=== PATIENT | female | born 1985 | race Caucasian/White ===

== ENCOUNTER 2016-07-29 15:56 | Emergency (ER) | payer OTHER ==
[2016-07-29 16:30] VITALS: BP 106/60; PULSE 81; TEMP 98.6; BMI 28.8
--- NOTE | 2016-07-29 17:09 | PDOC ---
History of Present Illness - General Chief Complaint: Cold Symptoms Stated Complaint: FEVER, THROAT PAIN Time Seen by Provider: 07/29/16 16:27 History Source: Patient Exam Limitations: No Limitations - History of Present Illness Initial Comments: 07/29/16 17:04 30 yr female with c/o fever, body aches for 2 days. Pt's young children with flu symptoms the past 3 days. no vomiting or diarrhea. 07/29/16 17:08 Severity: reports: mild Past History - Past Medical History Allergies/Adverse Reactions: Allergies Allergy/AdvReac Type Severity Reaction Status Date / Time No Known Drug Allergies Allergy Verified 07/29/16 16:26 Home Medications: Ambulatory Orders Penicillin V Potassium [Pen Vee K -] 500 mg PO BID #20 tablet 07/29/16 Asthma: No Cancer: No Cardiac Disorders: No CVA: No COPD: No CHF: No DVT: No Dementia: No Diabetes: No Dialysis: No GI Disorders: No HTN: No Kidney Stones: No Liver Disease: No Psychiatric Problems: No Suicide Attempt (Hx): No Seizures: No Thyroid Disease: No - Surgical History Abdominal Surgery: Yes (tummy tuck ) - Reproductive History (#): 4 Para: 4 Cervical CA: No Dysfunctional Uterine Bleeding: No Ectopic : No Endometrial CA: No Polycystic Ovaries: No Therapeutic (s) & number: No Tubal Ligation: No Spontaneous : 0 - Immunization History Td Vaccination: Yes Immunization Up to Date: Yes - Psycho/Social/Smoking Cessation Hx Anxiety: No Suicidal Ideation: No Smoking Status: No Smoking History: Never smoked Years of Tobacco Use: 0 Have you smoked in the past 12 months: No Number of Cigarettes Smoked Daily: 0 Cigars Per Day: 0 Hx Alcohol Use: No Drug/Substance Use Hx: No Substance Use Type: None Hx Substance Use Treatment: No Respiratory Specific PMHX - Complaint Specific PMHX Angina: No Bronchitis: No Pneumonia: No Pulmonary Embolus: No TB (Tuberculosis): No Review of Systems - Review of Systems Able to Perform ROS?: Yes Is the patient limited Ethiopian proficient: No Constitutional: Yes: Symptoms Reported HEENTM: Yes: Symptoms Reported Respiratory: No: Symptoms reported Cardiac (ROS): No: Symptoms Reported ABD/GI: No: Symptoms Reported : No: Symptoms Reported Musculoskeletal: Yes: Symptoms Reported, See HPI Integumentary: No: Symptoms Reported *Physical Exam - Vital Signs Last Vital Signs Temp Pulse Resp BP Pulse Ox 98.6 F 81 14 106/60 99 07/29/16 16:26 07/29/16 16:26 07/29/16 16:26 07/29/16 16:26 07/29/16 16:26 - Physical Exam General Appearance: Yes: Nourished, Appropriately Dressed HEENT: positive: EOMI, TONE, TMs Normal, Pharynx Normal, Pharyngeal Erythema, Tonsillar Erythema Neck: positive: Supple. negative: Lymphadenopathy (R), Lymphadenopathy (L) Respiratory/Chest: positive: Lungs Clear, Normal Breath Sounds Cardiovascular: positive: Regular Rhythm, Regular Rate Gastrointestinal/Abdominal: positive: Normal Bowel Sounds, Soft Extremity: positive: Normal Capillary Refill, Normal Inspection, Normal Range of Motion Integumentary: positive: Normal Color, Dry, Warm Neurologic: positive: Fully Oriented, Alert, Normal Mood/Affect, Normal Response , Motor Strength 5/5 Medical Decision Making - Medical Decision Making 07/29/16 17:15 cc: sore throat, fever young children with same symptoms. strep sent from triage. *DC/Admit/Observation/Transfer Diagnosis at time of Disposition: Strep throat - Discharge Dispostion Disposition: HOME Condition at time of disposition: Good - Prescriptions Prescriptions: Penicillin V Potassium [Pen Vee K -] 500 mg PO BID #20 tablet - Referrals Referrals: Zuleyma Manning [Primary Care Provider] - - Patient Instructions Additional Instructions: you have strep throat take penicillin as directed for 10 days finish all the medicine gargle with warm salt water 4-5 times a day take motrin 600mg every 6hrs for fever or pain throw out your toothbrush at the end of treatment follow with your doctor next week
== END 2016-07-29 17:42 | disposition home or self-care (01) ==
LOC: JERFT 15:56
DX: J02.0 Streptococcal pharyngitis (principal)
CPT/HCPCS: 87070; 87077; 87430; 87804; 99281-25

== ENCOUNTER 2016-09-14 21:46 | Emergency (ER) | payer OTHER ==
[2016-09-14 22:16] VITALS: BP 110/57; PULSE 73; TEMP 98; BMI 28.3
[2016-09-15] MEDS ORDERED: ONDANSETRON *ODT* 4 MG TABLET SL ONE (00:18)
--- NOTE | 2016-09-15 00:18 | PDOC ---
History of Present Illness - History of Present Illness Initial Comments: 09/15/16 00:40 The patient is a 30 year old female, with no significant past medical history, who presents to the emergency department with nausea, vomiting, and diarrhea today. The patient mentions that her oldest son came home from daycare with vomiting and diarrhea today. The patient reports a couple episodes of vomiting and diarrhea while in the ED tonight. She denies chest pain, shortness of breath, headache and dizziness. She denies fever, chills, and constipation. She denies dysuria, frequency, urgency and hematuria. Allergies: NKDA Past surgical history: tubal ligation Social history: denies toxic habits <Mar Ness - Last Filed: 09/15/16 00:39> - General History Source: Patient <Stan Ortega - Last Filed: 09/15/16 06:34> - General Chief Complaint: Sore Throat Stated Complaint: SORE THROAT/DIARRHEA Time Seen by Provider: 09/15/16 00:18 Past History <Mar Ness - Last Filed: 09/15/16 00:39> - Past Medical History Asthma: No Cancer: No Cardiac Disorders: No CVA: No COPD: No CHF: No DVT: No Dementia: No Diabetes: No Dialysis: No GI Disorders: No HTN: No Kidney Stones: No Liver Disease: No Psychiatric Problems: No Suicide Attempt (Hx): No Seizures: No Thyroid Disease: No - Surgical History Abdominal Surgery: Yes (tummy tuck ) - Reproductive History (#): 4 Para: 4 Cervical CA: No Dysfunctional Uterine Bleeding: No Ectopic : No Endometrial CA: No Polycystic Ovaries: No Therapeutic (s) & number: No Tubal Ligation: No Spontaneous : 0 - Immunization History Td Vaccination: Yes Immunization Up to Date: Yes - Psycho/Social/Smoking Cessation Hx Anxiety: No Suicidal Ideation: No Smoking Status: No Smoking History: Never smoked Years of Tobacco Use: 0 Have you smoked in the past 12 months: No Number of Cigarettes Smoked Daily: 0 Cigars Per Day: 0 Hx Alcohol Use: No Drug/Substance Use Hx: No Substance Use Type: None Hx Substance Use Treatment: No <Stan Ortega - Last Filed: 09/15/16 06:34> - Past Medical History Allergies/Adverse Reactions: Allergies Allergy/AdvReac Type Severity Reaction Status Date / Time No Known Drug Allergies Allergy Verified 09/14/16 22:17 Home Medications: Ambulatory Orders Penicillin V Potassium [Pen Vee K -] 500 mg PO BID #20 tablet 07/29/16 Ondansetron [Zofran *Odt*] 4 mg SL TID #30 od.tablet 09/15/16 Review of Systems - Review of Systems Able to Perform ROS?: Yes Comments:: 09/15/16 00:39 CONSTITUTIONAL: Absent: fever, chills, diaphoresis, generalized weakness, malaise, loss of appetite HEENT: Absent: rhinorrhea, nasal congestion, throat pain, throat swelling, difficulty swallowing, mouth swelling, ear pain, eye pain, visual Changes CARDIOVASCULAR: Absent: chest pain, syncope, palpitations, irregular heart rate, lightheadedness , peripheral edema RESPIRATORY: Absent: cough, shortness of breath, dyspnea with exertion, orthopnea, wheezing, stridor, hemoptysis GASTROINTESTINAL: (+) nausea, vomiting, diarrhea, Absent: abdominal pain, abdominal distension, constipation, melena, hematochezia GENITOURINARY: Absent: dysuria, frequency, urgency, hesitancy, hematuria, flank pain, genital pain MUSCULOSKELETAL: Absent: myalgia, arthralgia, joint swelling SKIN: Absent: rash, itching, pallor HEMATOLOGIC/IMMUNOLOGIC: Absent: easy bleeding, easy bruising, lymphadenopathy, frequent infections ENDOCRINE: Absent: unexplained weight gain, unexplained weight loss, heat intolerance, cold intolerance NEUROLOGIC: Absent: headache, focal weakness or paresthesias, dizziness, unsteady gait, seizure, mental status changes, bladder or bowel incontinence PSYCHIATRIC: Absent: anxiety, depression, suicidal or homicidal ideation, hallucinations. <Mar Ness - Last Filed: 09/15/16 00:39> *Physical Exam - Vital Signs Last Vital Signs Temp Pulse Resp BP Pulse Ox 98.0 F 73 20 110/57 100 09/14/16 22:14 09/14/16 22:14 09/14/16 22:14 09/14/16 22:14 09/14/16 22:14 - Physical Exam Comments: 09/15/16 00:40 GENERAL: Well developed, well nourished. Awake and alert. No acute distress. HEENT: Normocephalic, atraumatic. PERRLA, EOMI. No conjunctival pallor. Sclera are non- icteric. Moist mucous membranes. Oropharynx is clear. NECK: Supple. Full ROM. No JVD. Carotid pulses 2+ and symmetric, without bruits. No thyromegaly. No lymphadenopathy. CARDIOVASCULAR: Regular rate and rhythm. No murmurs, rubs, or gallops. Distal pulses are 2+ and symmetric. PULMONARY: No evidence of respiratory distress. Lungs clear to auscultation bilaterally. No wheezing, rales or rhonchi. ABDOMINAL: Soft. Non-tender. Non-distended. No rebound or guarding. No organomegaly. Normoactive bowel sounds. MUSCULOSKELETAL Normal range of motion at all joints. No bony deformities or tenderness. No CVA tenderness. EXTREMITIES: No cyanosis. No clubbing. No edema. No calf tenderness. SKIN: Warm and dry. Normal capillary refill. No rashes. No jaundice. NEUROLOGICAL: Alert, awake, appropriate. Cranial nerves 2-12 intact. Normoreflexic in the upper and lower extremities. Normal speech. Toes are down-going bilaterally. Gait is normal without ataxia. PSYCHIATRIC: Cooperative. Good eye contact. Appropriate mood and affect. <Mar Ness - Last Filed: 09/15/16 00:39> - Vital Signs Last Vital Signs Temp Pulse Resp BP Pulse Ox 98.0 F 73 20 110/57 100 09/14/16 22:14 09/14/16 22:14 09/14/16 22:14 09/14/16 22:14 09/14/16 22:14 <Stan Ortega - Last Filed: 09/15/16 06:34> Medical Decision Making - Medical Decision Making 09/15/16 06:33 Dr. Ortega: The scribe's documentation has been prepared under my direction and personally reviewed by me in its entirery. I confirm that the note above accurately reflects all work, treatment, procedures, and medical decision making performed by me. <Stan Ortega - Last Filed: 09/15/16 06:34> *DC/Admit/Observation/Transfer - Attestations Scribe Attestion: 09/15/16 00:40 Documentation prepared by Mar Ness, acting as certified medical aide for Stan Ortega MD <Mar Ness - Last Filed: 09/15/16 00:39> - Discharge Dispostion Admit: No <Stan Ortega - Last Filed: 09/15/16 06:34> Diagnosis at time of Disposition: Viral gastroenteritis - Discharge Dispostion Disposition: HOME Condition at time of disposition: Stable - Prescriptions Prescriptions: Ondansetron [Zofran *Odt*] 4 mg SL TID #30 od.tablet - Referrals Referrals: Zuleyma Manning [Primary Care Provider] - - Patient Instructions Printed Discharge Instructions: DI for Viral Gastroenteritis -- Adult Print Language: ZAMBIAN - Post Discharge Activity Work/School Note: Back to Work
== END 2016-09-15 02:20 | disposition home or self-care (01) ==
LOC: JER 21:46
DX: A08.4 Viral intestinal infection, unspecified (principal); B97.89 Other viral agents as the cause of diseases classified elsewhere
CPT/HCPCS: 99281-25

== ENCOUNTER 2017-06-15 16:38 | Emergency (ER) | payer OTHER ==
[2017-06-15 16:45] VITALS: BP 102/58; PULSE 82; TEMP 98.6; BMI 28.0
--- NOTE | 2017-06-15 16:49 | PDOC ---
History of Present Illness - General History Source: Patient, Old Records Exam Limitations: No Limitations - History of Present Illness Initial Comments: 06/15/17 17:40 The patient is a 31 year old female (), with no significant past medical history, who presents to the emergency department with intermittent left lower quadrant abdominal pain for the past two months. The patient describes the lower abdominal pain as a cramping pain and states that it has worsened within the past week. The patient additionally reports urinary frequency in the past week. She also reports lower back pain which radiates down the left leg. The patient denies fever, chills, nausea, vomiting, diarrhea, dysuria or hematuria. The patient states that she is not currently sexually active. Allergies: None reported. Past Surgical History: ; Tubal Ligation. Social History: Non-smoker. Denies alcohol or drug use. <Marina Morales - Last Filed: 06/15/17 18:48> <Amish Multani - Last Filed: 06/15/17 19:07> - General Chief Complaint: Urinary Problem Stated Complaint: lower abdominal pain with frequent urination Past History <Marina Morales - Last Filed: 06/15/17 18:48> - Past Medical History Asthma: No Cancer: No Cardiac Disorders: No CVA: No COPD: No CHF: No DVT: No Dementia: No Diabetes: No Dialysis: No GI Disorders: No HTN: No Kidney Stones: No Liver Disease: No Psychiatric Problems: No Seizures: No Thyroid Disease: No Other medical history: pt denies - Surgical History Abdominal Surgery: Yes (tummy tuck ) - Reproductive History (#): 4 Para: 4 Cervical CA: No Dysfunctional Uterine Bleeding: No Ectopic : No Endometrial CA: No Polycystic Ovaries: No Therapeutic (s) & number: No Tubal Ligation: No Spontaneous : 0 - Immunization History Td Vaccination: Yes Immunization Up to Date: Yes - Suicide/Smoking/Psychosocial Hx Smoking Status: No Smoking History: Never smoked Years of Tobacco Use: 0 Have you smoked in the past 12 months: No Number of Cigarettes Smoked Daily: 0 Cigars Per Day: 0 Hx Alcohol Use: No Drug/Substance Use Hx: No Substance Use Type: None Hx Substance Use Treatment: No <Amish Multani - Last Filed: 06/15/17 19:07> - Past Medical History Allergies/Adverse Reactions: Allergies Allergy/AdvReac Type Severity Reaction Status Date / Time No Known Drug Allergies Allergy Verified 06/15/17 16:39 Home Medications: Ambulatory Orders NK [No Known Home Medication] 06/15/17 Review of Systems - Review of Systems Able to Perform ROS?: Yes Comments:: 06/15/17 16:50 A complete review of 10 out of 10 review of systems is taken and is negative apart from what is previously mentioned below and in the HPI. <Marina Morales - Last Filed: 06/15/17 18:48> *Physical Exam - Vital Signs Last Vital Signs Temp Pulse Resp BP Pulse Ox 98.6 F 82 18 102/58 100 06/15/17 16:38 06/15/17 16:38 06/15/17 16:38 06/15/17 16:38 06/15/17 16:38 - Physical Exam Comments: 06/15/17 17:37 Vitals: Triage vital signs reviewed. General Appearance: No acute distress, well nourished, well developed. Head: Atraumatic, normocephalic. Eyes: Pupils equal round reactive, extraocular movements intact. Neck: Supple. No nuchal rigidity. Chest Wall: Nontender. Cardiac: Regular rate and rhythm. No murmurs, no rubs, no gallops. Lungs: Clear to auscultation bilaterally, good air movement bilaterally. Abdomen: Mild left lower quadrant tenderness. Soft, nondistended, normal bowel sounds. MSK: Mild midline low back discomfort, maximal left paraspinal L3 - L5 distribution. Extremities: Full range of motion to all extremities. No cyanosis, clubbing, or edema. Skin: Warm and dry, no rashes or lesions, no petechiae. Neuro: AOX3. Cranial Nerves 2-12 grossly intact. Strength intact to all extremities. Sensation intact to all extremities. Normal gait. Psych: Normal mood, normal affect. Pelvic Exam: Left adnexal tenderness. No cervical motion tenderness. No noticeable discharge. <Marina Morales - Last Filed: 06/15/17 18:48> - Vital Signs Last Vital Signs Temp Pulse Resp BP Pulse Ox 98.6 F 82 18 102/58 100 06/15/17 16:38 06/15/17 16:38 06/15/17 16:38 06/15/17 16:38 06/15/17 16:38 <Amish Multani - Last Filed: 06/15/17 19:07> ED Treatment Course - LABORATORY CBC & Chemistry Diagram: 06/15/17 18:10 06/15/17 18:10 <Marina Morales - Last Filed: 06/15/17 18:48> - LABORATORY CBC & Chemistry Diagram: 06/15/17 18:10 06/15/17 18:10 <Amish Multani - Last Filed: 06/15/17 19:07> Medical Decision Making - Medical Decision Making 06/15/17 18:48 EXAM: US/TRANSVAGINAL US Reviewed By: Dr. Suresh South IMPRESSION: A 3 cm hemorrhagic left ovarian cyst is seen. <Marina Morales - Last Filed: 06/15/17 18:48> - Medical Decision Making 06/15/17 18:39 History and examination most consistent with ovarian cyst, hemmorhagic Patient feels better after Toradol. She was instructed to follow up with [facility] this week Findings, the need for follow-up and strict return instructions discussed with patient. <Amish Multani - Last Filed: 06/15/17 19:07> *DC/Admit/Observation/Transfer - Attestations Scribe Attestion: 06/15/17 17:10 Documentation prepared by Marina Morales, acting as medical assembler for Amish Multani MD. <Marina Morales - Last Filed: 06/15/17 18:48> <Amish Multani - Last Filed: 06/15/17 19:07> Diagnosis at time of Disposition: Ruptured ovarian cyst - Discharge Dispostion Condition at time of disposition: Stable - Referrals Referrals: Ashley Heard MD [Staff Physician] - - Patient Instructions Printed Discharge Instructions: DI for Ovarian Cyst Additional Instructions: Follow up with Dr. Heard [facility]NA[facility] within 1 week. Take [id number] Aleve 2 tabs twice a day for the next 3 days. Drink plenty of fluids. Return to the emergency department for any severe worsening symptoms or for any concerns.
[2017-06-15 17:18] LABS: PH,URINE 7.5 (4.5-8); URINE APPEARANCE Clear; URINE BILIRUBIN Negative (NEGATIVE); URINE BLOOD Negative (NEGATIVE); URINE GLUCOSE (UA) Negative (NEGATIVE); URINE KETONE Negative (NEGATIVE); URINE NITRITE Negative (NEGATIVE); URINE PROTEIN Negative (NEGATIVE); URINE UROBILINOGEN 0.2 (0.2-1.0)
[2017-06-15 17:22] LABS: URINE COLOR YELLOW
[2017-06-15] MEDS ORDERED: KETOROLAC TROMETHAMINE 30 MG/1 ML VIAL IM ONE (18:21)
[2017-06-15 18:27] LABS: BASO % 0.4 % (0-2.0); EOS % 1.9 % (0-4.5); HEMATOCRIT 36.8 % (32.4-45.2); HEMOGLOBIN 11.9 GM/dl (10.7-15.3); MCH 27.1 pg (25.7-33.7); MCHC 32.3 g/dl (32.0-36.0); MEAN CELL VOLUME 84.1 fl (80-96); MEAN PLT VOLUME 8.3 fl (7.5-11.1); MONO % 6.9 % (3.8-10.2); NEUT % 67.8 % (42.8-82.8); PLATELET COUNT 292 K/MM3 (134-434); RBC 4.37 M/mm3 (3.60-5.2); RDW 14.6 % (11.6-15.6); WHITE BLOOD COUNT 9.7 K/mm3 (4.0-10.8)
[2017-06-15] MEDS ORDERED: KETOROLAC TROMETHAMINE 30 MG/1 ML VIAL ONE (18:36)
[2017-06-15 18:42] LABS: ALBUMIN 3.6 g/dl (3.5-5.0); ALK PHOS 65 U/L (32-92); ANION GAP 5 (8-16); BILIRUBIN,TOTAL 0.2 mg/dl (0.2-1.0); BLOOD UREA NITROGEN 15 mg/dl (7-18); CALCIUM 8.7 mg/dl (8.4-10.2); CHLORIDE 104 mmol/L (98-107); CO2 28 mmol/L (22-28); CREATININE 0.9 mg/dl (0.6-1.3); GLUCOSE,RANDOM 93 mg/dl (74-106); POTASSIUM 3.7 mmol/L (3.5-5.1); SGOT/AST 15 U/L (10-42); SGPT/ALT 13 U/L (10-40); SODIUM 137 mmol/L (136-145)
== END 2017-06-15 19:21 | disposition home or self-care (01) ==
LOC: FER 16:38
PROC: 3E0233Z Introduction of Anti-inflammatory into Muscle, Percutaneous Approach (ICD-10-PCS; principal; 2017-06-15)
DX: N83.299 Other ovarian cyst, unspecified side (principal)
CPT/HCPCS: 36415; 76830-TC; 80053; 81003; 84703; 85025; 87086; 96372; 99282-25

== ENCOUNTER 2017-08-05 18:59 | Emergency (ER) | payer OTHER ==
[2017-08-05 19:03] VITALS: BP 111/69; PULSE 74; TEMP 98.8; BMI 28.0
[2017-08-05] MEDS ORDERED: predniSONE 20 MG TABLET (UD) PO ONE (20:31)
[2017-08-05] MEDS ORDERED: RANITIDINE HCL 150 MG TABLET (FP) PO ONE (20:31)
[2017-08-05] MEDS ORDERED: diphenhydrAMINE HCL 25 MG CAPSULE (FP) PO ONE (20:31)
--- NOTE | 2017-08-05 20:31 | PDOC ---
History of Present Illness - General History Source: Patient Exam Limitations: No Limitations - History of Present Illness Initial Comments: 08/05/17 21:14 The patient is a 31 year old female with no significant past medical history who presents to the ED with complaints of rash. The patient states she was in the ED earlier today with her three children when one of her boys put their jacket in the red [place] garbage bin. She states after retrieving it from the garbage, she did not wash her hands and brushed her hair away from her face , touching her left ear. After this happened, her ear became very itchy. Since then the patient has developed a rash all over her body, predominantly on her trunk, groin, legs. She reports taking Claritin without any relief. The patient cannot relate her symptoms to any other causes, denies any new exposures or medications. The patient denies any difficulty swallowing or throat swelling She denies having any recent illness, fevers, or chills. Denies N/V. Denies weakness, dizziness. <Carmela Geronimo - Last Filed: 08/05/17 21:14> <Mariaelena Villalta - Last Filed: 08/06/17 01:34> - General Chief Complaint: Vaginal Sxs Stated Complaint: ITCHING/VAGINAL ITCHING Time Seen by Provider: 08/05/17 20:14 Past History <Carmela Geronimo - Last Filed: 08/05/17 21:14> - Past Medical History Asthma: No Cancer: No Cardiac Disorders: No CVA: No COPD: No CHF: No DVT: No Dementia: No Diabetes: No Dialysis: No GI Disorders: No HTN: No Kidney Stones: No Liver Disease: No Psychiatric Problems: No Seizures: No Thyroid Disease: No - Surgical History Abdominal Surgery: Yes (tumjaneth tumicki ) - Reproductive History (#): 4 Para: 4 Cervical CA: No Dysfunctional Uterine Bleeding: No Ectopic : No Endometrial CA: No Polycystic Ovaries: No Therapeutic (s) & number: No Tubal Ligation: No Spontaneous : 0 - Immunization History Td Vaccination: Yes Immunization Up to Date: Yes - Suicide/Smoking/Psychosocial Hx Smoking Status: No Smoking History: Never smoked Years of Tobacco Use: 0 Have you smoked in the past 12 months: No Number of Cigarettes Smoked Daily: 0 Cigars Per Day: 0 Hx Alcohol Use: No Drug/Substance Use Hx: No Substance Use Type: None Hx Substance Use Treatment: No <Mariaelena Villalta - Last Filed: 08/06/17 01:34> - Past Medical History Allergies/Adverse Reactions: Allergies Allergy/AdvReac Type Severity Reaction Status Date / Time No Known Drug Allergies Allergy Verified 06/15/17 16:39 Home Medications: Ambulatory Orders Prednisone [Prednisone 50 MG TABLETS] 50 mg PO DAILY #4 tablet 08/05/17 Review of Systems - Review of Systems Able to Perform ROS?: Yes Comments:: 08/05/17 21:14 "GENERAL/CONSTITUTIONAL: No fever or chills. No weakness. HEAD, EYES, EARS, NOSE AND THROAT: No change in vision. No ear pain or discharge. No sore throat. GASTROINTESTINAL: No nausea, vomiting, diarrhea or constipation. GENITOURINARY: No dysuria, frequency, or change in urination. CARDIOVASCULAR: No chest pain or shortness of breath. RESPIRATORY: No cough, wheezing, or hemoptysis. MUSCULOSKELETAL: No joint or muscle swelling or pain. No neck or back pain. SKIN: Present: rash NEUROLOGIC: No headache, vertigo, loss of consciousness, or change in strength/ sensation. ENDOCRINE: No increased thirst. No abnormal weight change. HEMATOLOGIC/LYMPHATIC: No anemia, easy bleeding, or history of blood clots. ALLERGIC/IMMUNOLOGIC: No hives or skin allergy. " All Other Systems: Reviewed and Negative <Carmela Geronimo - Last Filed: 08/05/17 21:14> *Physical Exam - Vital Signs Last Vital Signs Temp Pulse Resp BP Pulse Ox 98.8 F 74 16 111/69 100 08/05/17 19:01 08/05/17 19:01 08/05/17 19:01 08/05/17 19:01 08/05/17 19:01 - Physical Exam Comments: 08/05/17 21:14 GENERAL: Awake, alert, and fully oriented, in no acute distress HEAD: No signs of trauma EYES: PERRLA, EOMI, sclera anicteric, conjunctiva clear ENT: Auricles normal inspection, hearing grossly normal, nares patent, oropharynx clear without exudates. Moist mucosa NECK: Normal ROM, supple, no lymphadenopathy, JVD, or masses LUNGS: Breath sounds equal, clear to auscultation bilaterally. No wheezes, and no crackles HEART: Regular rate and rhythm, normal S1 and S2, no murmurs, rubs or gallops ABDOMEN: Soft, nontender, normoactive bowel sounds. No guarding, no rebound. No masses EXTREMITIES: Normal range of motion, no edema. No clubbing or cyanosis. No cords, erythema, or tenderness BACK: No midline spinal tenderness in cervical/thoracic/lumbar region NEUROLOGICAL: Normal speech, cranial nerves intact, negative pronator drift, 5/ 5 strength in all 4 extremities, normal sensation to light touch in all 4 extremities, normal cerebellar exam, normal gait, normal reflexes and tone SKIN: Diffuse erythematous papular rash to L neck, trunk, groin, suprapubic area and proximal lower extremities sparing palms and soles. In some areas, rash hives are present. No mucus involvement. <Carmela Geronimo - Last Filed: 08/05/17 21:14> - Vital Signs Last Vital Signs Temp Pulse Resp BP Pulse Ox 98.8 F 74 16 111/69 100 08/05/17 19:01 08/05/17 19:01 08/05/17 19:01 08/05/17 19:01 08/05/17 19:01 <Mariaelena Villalta - Last Filed: 08/06/17 01:34> ED Treatment Course - Medications Given in the ED: ED Medications Discontinued Medications Generic Name Dose Route Start Last Admin Trade Name Freq PRN Reason Stop Dose Admin Diphenhydramine HCl 50 mg 08/05/17 20:31 08/05/17 20:44 Benadryl - PO 08/05/17 20:32 50 mg ONCE ONE Administration Prednisone 60 mg 08/05/17 20:31 08/05/17 20:44 Deltasone - PO 08/05/17 20:32 60 mg ONCE ONE Administration Ranitidine HCl 150 mg 08/05/17 20:31 08/05/17 20:44 Zantac - PO 08/05/17 20:32 150 mg ONCE ONE Administration <Carmela Geronimo - Last Filed: 08/05/17 21:14> Medical Decision Making - Medical Decision Making 08/05/17 21:40 31-year-old female presents with rash. Vitals unremarkable. Exam with diffuse hives. No evidence of other symptoms, likely simple ALLERGIC reaction to unknown trigger. We'll treat with steroids, ranitidine, and Benadryl and reassess. 08/05/17 22:25 Patient reported improvement in rash and itching, likely simple allergic reaction. Patient left prior to receiving discharge paperwork. We called patient to let her know about prescription for prednisone, she stated she will pick it up. I discussed the physical exam findings, ancillary test results and final diagnoses with the patient. I answered all of the patient's questions. The patient was satisfied with the care received and felt comfortable with the discharge plan and treatment plan. The patient will call their primary care physician within 24 hours to arrange follow-up and will return to the Emergency Department with any new, persistent or worsening symptoms. <Mariaelena Villalta - Last Filed: 08/06/17 01:34> *DC/Admit/Observation/Transfer - Attestations Scribe Attestion: 08/05/17 21:15 Documentation prepared by Carmela Geronimo, acting as biomedical photographer for Mariaelena Villalta MD. <Carmela Geronimo - Last Filed: 08/05/17 21:14> - Discharge Dispostion Admit: No - Attestations Physician Attestion: 08/05/17 22:52 I, Dr. Mariaelena Villalta MD, attest that this document has been prepared under my direction and personally reviewed by me in its entirety. I further attest, that it accurately reflects all work, treatment, procedures and medical decision -making performed by me. <Mariaelena Villalta - Last Filed: 08/06/17 01:34> Diagnosis at time of Disposition: Allergic reaction - Discharge Dispostion Disposition: HOME Condition at time of disposition: Stable - Prescriptions Prescriptions: Prednisone [Prednisone 50 MG TABLETS] 50 mg PO DAILY #4 tablet - Patient Instructions Printed Discharge Instructions: DI for General Allergic Reactions Additional Instructions: Take prednisone daily as prescribed. Take Benadryl as needed for any rash, itching, or swelling. Follow-up with you primary doctor within 1-2 days. Return to the emergency department if you have any new, worsening or concerning symptoms.
[2017-08-05] MEDS ORDERED: diphenhydrAMINE HCL 50 MG CAPSULE ONE (20:42)
[2017-08-05] MEDS ORDERED: RANITIDINE HCL 150 MG TABLET (FP) ONE (20:42)
[2017-08-05] MEDS ORDERED: predniSONE 20 MG TABLET (UD) ONE (20:42)
== END 2017-08-05 22:00 | disposition home or self-care (01) ==
LOC: FER 18:59
DX: T78.49XA Other allergy, initial encounter (principal); X58.XXXA Exposure to other specified factors, initial encounter; Y93.89 Activity, other specified; Y92.238 Other place in hospital as the place of occurrence of the external cause
CPT/HCPCS: 99281-25

== ENCOUNTER 2017-08-07 17:51 | Observation (INO) | payer OTHER ==
[2017-08-07 18:01] VITALS: BMI 30.1
--- NOTE | 2017-08-07 19:00 | PDOC ---
History of Present Illness - History of Present Illness Initial Comments: 08/07/17 19:07 Patient is a 31 F, who presents with her son (who is also a patient today) for urticaria and joint pain. Patient has returned to the ER for a rash around her periorbital, perioral, arms, forearms, and legs. Patient also complaints on joint pain upon movement. Patient was previously seen on 08/05 and 08/06 for a rash that seemed to develop after exposure to the red biohazard trash can. She was prescribed Hydroxyzine and Prednisone. She states she took a 50mg tablet of Prednisone this morning. Allergies: None reported. Past Surgical History: ; Tubal Ligation. Social History: Non-smoker. Denies alcohol or drug use. PCP: Dr. Manning <Thalia Herring - Last Filed: 08/07/17 19:07> <Arben Saldana - Last Filed: 08/07/17 21:22> - General Chief Complaint: Rash Stated Complaint: RASH AND PAIN TO HANDS, FEET AND PERIORITAL , ORAL Time Seen by Provider: 08/07/17 18:35 Past History <Thalia Herring - Last Filed: 08/07/17 19:07> - Past Medical History Asthma: No Cancer: No Cardiac Disorders: No CVA: No COPD: No CHF: No DVT: No Dementia: No Diabetes: No Dialysis: No GI Disorders: No HTN: No Kidney Stones: No Liver Disease: No Psychiatric Problems: No Seizures: No Thyroid Disease: No - Surgical History Abdominal Surgery: Yes (tummy tuck ) - Reproductive History (#): 4 Para: 4 Cervical CA: No Dysfunctional Uterine Bleeding: No Ectopic : No Endometrial CA: No Polycystic Ovaries: No Therapeutic (s) & number: No Tubal Ligation: No Spontaneous : 0 - Immunization History Td Vaccination: Yes Immunization Up to Date: Yes - Suicide/Smoking/Psychosocial Hx Smoking Status: No Smoking History: Never smoked Years of Tobacco Use: 0 Have you smoked in the past 12 months: No Number of Cigarettes Smoked Daily: 0 Cigars Per Day: 0 Hx Alcohol Use: No Drug/Substance Use Hx: No Substance Use Type: None Hx Substance Use Treatment: No <Arben Saldana - Last Filed: 08/07/17 21:22> - Past Medical History Allergies/Adverse Reactions: Allergies Allergy/AdvReac Type Severity Reaction Status Date / Time No Known Drug Allergies Allergy Verified 08/07/17 17:53 Home Medications: Ambulatory Orders Prednisone [Prednisone 50 MG TABLETS] 50 mg PO DAILY #4 tablet 08/05/17 Permethrin 5% Topical Cream [Elimite -] 1 applic TP ONCE 1 Days #4 tube Prednisone [Prednisone 50 MG TABLETS] 50 mg PO DAILY 4 Days #4 tablet 08/06/17 hydrOXYzine HCL [Atarax -] 25 mg PO QID #28 tablet 08/06/17 Review of Systems - Review of Systems Comments:: 08/07/17 19:07 CONSTITUTIONAL: Absent: Fever, Chills, Diaphoresis, Generalized Weakness, Malaise, Loss of Appetite HEENT: Absent: Rhinorrhea, Nasal Congestion, Throat Pain, Throat Swelling, Difficulty Swallowing, Mouth Swelling, Ear Pain, Eye Pain, Visual Changes CARDIOVASCULAR: Absent: Chest Pain, Syncope, Palpitations, Irregular Heart Rate, Lightheadedness , Peripheral Edema RESPIRATORY: Absent: Cough, Shortness of Breath, SOB with Exertion, Orthopnea, Wheezing, Stridor, Hemoptysis GASTROINTESTINAL: Absent: Abdominal pain, Abdominal Distension, Nausea, Vomiting, Diarrhea, Constipation, Melena, Hematochezia GENITOURINARY: Absent: Dysuria, Frequency, Urgency, Hesitancy, Flank Pain, Genital Pain MUSCULOSKELETAL: Present: Arthralgia diffusely Absent: Myalgia, Joint Swelling, Back pain, SKIN: Present: errythemtous rash diffusely, itching Absent: pallor HEMATOLOGIC/IMMUNOLOGIC: Absent: Easy Bleeding, Easy Bruising, Lymphadenopathy, Frequent infections ENDOCRINE: Absent: Unexplained Weight Gain, Unexplained Weight Loss, Heat Intolerance, Cold Intolerance NEUROLOGIC: Absent: Headache, Focal Weakness, Paresthesias, Vertigo, Lightheadedness, Unsteady Gait, Seizure, Mental Status Changes, Incontinence PSYCHIATRIC: Absent: Anxiety, Depression <Thalia Herring - Last Filed: 08/07/17 19:07> *Physical Exam - Vital Signs Last Vital Signs Temp Pulse Resp BP Pulse Ox 98.1 F 81 18 108/72 99 08/07/17 17:58 08/07/17 17:58 08/07/17 17:58 08/07/17 17:58 08/07/17 17:58 - Physical Exam Comments: 08/07/17 19:09 GENERAL: The patient is awake, alert, and fully oriented, in no acute distress. HEAD: Normal with no signs of trauma. EYES: Pupils equal, round and reactive to light, extraocular movements intact, sclera anicteric, conjunctiva clear. ENT: Ears normal, nares patent, oropharynx clear without exudates. Moist mucous membranes. NECK: Normal range of motion, supple without lymphadenopathy, JVD, or masses. LUNGS: Breath sounds equal, clear to auscultation bilaterally. No wheezes, and no crackles. HEART: Regular rate and rhythm, normal S1 and S2 without murmur, rub or gallop. ABDOMEN: Soft, nontender, normoactive bowel sounds. No guarding, no rebound. No masses. EXTREMITIES: Tenderness to palpation, secondary to pain in joints diffusely. Normal range of motion, no edema. No clubbing or cyanosis. No cords. NEUROLOGICAL: Cranial nerves II through XII grossly intact. Normal speech, normal gait. PSYCH: Normal mood, normal affect. SKIN: Periorbital rash with welts. Rash to b/l arms, forearms, hands, legs. Warm , Dry, normal turgor. <Thalia Herring - Last Filed: 08/07/17 19:07> - Vital Signs Last Vital Signs Temp Pulse Resp BP Pulse Ox 98.1 F 81 18 108/72 99 08/07/17 17:58 08/07/17 17:58 08/07/17 17:58 08/07/17 17:58 08/07/17 17:58 <Arben Saldana - Last Filed: 08/07/17 21:22> ED Treatment Course - LABORATORY CBC & Chemistry Diagram: 08/07/17 19:35 08/07/17 19:35 <Arben Saldana - Last Filed: 08/07/17 21:22> Medical Decision Making - Medical Decision Making 08/07/17 20:59 31-year-old female presents with progressive polyarthralgias and skin rash getting worse over several days. The pain is becoming severe and she is having difficulty moving her joints. The pain includes the shoulders, elbows, wrists, hands, hips, knees, and ankles. She denies fever. She was seen in the ER and given prednisone, 50 mg daily, but her symptoms are progressing with worsening pain and rash. She was also given hydroxyzine. On examination, the patient has a perioral rash as well as rash on her arms in the antecubital regions and less so on her legs. Laboratory studies reviewed: White blood cell count is 19,000 with left shift, 85% neutrophils. Anion gap is normal. LFTs are normal. The polyarthritis syndrome with severe leukocytosis is of uncertain etiology. This degree of leukocytosis would not be accounted for by oral prednisone. Differential diagnosis of the polyarthritis is broad but includes infection and bacterial infection is a possibility given the left shift and marked leukocytosis. Patient will be admitted to observation for repeat labs and follow-up of the evolution of her symptoms. Laboratory Results - last 24 hr 08/07/17 08/07/17 19:35 19:35 WBC 18.9 H D RBC 4.23 Hgb 11.8 Hct 34.6 MCV 82.0 MCH 28.0 MCHC 34.1 RDW 13.9 Plt Count 309 MPV 8.4 Neutrophils % 85.4 H Lymphocytes % 9.7 Monocytes % 4.7 Eosinophils % 0.0 Basophils % 0.2 ESR 9 Sodium 135 L Potassium 3.5 Chloride 106 Carbon Dioxide 22 D Anion Gap 7 L BUN 14 Creatinine < 0.8 Creat Clearance w eGFR > 60 Random Glucose 179 H D Calcium 8.6 Total Bilirubin < 0.5 D AST 18 ALT 13 Alkaline Phosphatase 62 Total Protein 6.7 Albumin 3.5 <Arben Saldana - Last Filed: 08/07/17 21:22> *DC/Admit/Observation/Transfer - Attestations Scribe Attestion: 08/07/17 19:12 Documentation prepared by Thalia Herring, acting as medical health researcher for Arben Saldana MD. <Thalia Herring - Last Filed: 08/07/17 19:07> - Discharge Dispostion Admit: Yes Decision to Admit order Date/Time: 08/07/17 21:[address] [facility] <Arben Saldana - Last Filed: 08/07/17 21:22> Diagnosis at time of Disposition: Polyarticular arthritis Leukocytosis Qualifiers: Leukocytosis type: unspecified Qualified Code(s): D72.829 - Elevated white blood cell count, unspecified - Discharge Dispostion Condition at time of disposition: Stable
[2017-08-07] MEDS ORDERED: NAPROXEN 375 MG TABLET (FP) PO ONE (19:06)
[2017-08-07] MEDS ORDERED: NAPROXEN 375 MG TABLET (FP) ONE (19:23)
[2017-08-07 20:03] LABS: BASO % 0.2 % (0-2.0); HEMATOCRIT 34.6 % (32.4-45.2); HEMOGLOBIN 11.8 GM/dl (10.7-15.3); LYMPH % 9.7 % (8-40); MCHC 34.1 g/dl (32.0-36.0); MEAN PLT VOLUME 8.4 fl (7.5-11.1); MONO % 4.7 % (3.8-10.2); NEUT % 85.4 % (42.8-82.8); PLATELET COUNT 309 K/MM3 (134-434); RBC 4.23 M/mm3 (3.60-5.2); RDW 13.9 % (11.6-15.6); WHITE BLOOD COUNT 18.9 K/mm3 (4.0-10.8)
[2017-08-07 20:12] LABS: ALBUMIN 3.5 g/dl (3.5-5.0); ALK PHOS 62 U/L (32-92); ANION GAP 7 (8-16); BLOOD UREA NITROGEN 14 mg/dl (7-18); CALCIUM 8.6 mg/dl (8.4-10.2); CHLORIDE 106 mmol/L (98-107); CO2 22 mmol/L (22-28); GLUCOSE,RANDOM 179 mg/dl (74-106); POTASSIUM 3.5 mmol/L (3.5-5.1); SGOT/AST 18 U/L (10-42); SGPT/ALT 13 U/L (10-40); SODIUM 135 mmol/L (136-145); TOT PROT 6.7 g/dl (6.4-8.3)
[2017-08-07 20:30] LABS: BILIRUBIN,TOTAL < 0.5 mg/dl (0.2-1.0); CREATININE < 0.8 mg/dl (0.6-1.3)
[2017-08-07 20:39] LABS: ERYTHROCYTE SEDIMENTATION RATE 9 mm/hr (0-20)
[2017-08-07] MEDS ORDERED: ACETAMINOPHEN 325 MG TABLET (FP) PO PRN (22:13)
[2017-08-07] MEDS ORDERED: ONDANSETRON 8 MG TABLET (FP) PO PRN (22:18)
[2017-08-07] MEDS ORDERED: HEPARIN NA (PORCINE) 5,000 UNITS/ML 1ML VIAL ONE (22:21)
--- NOTE | 2017-08-07 22:23 | HP ---
Admitting History and Physical - Admission Chief Complaint: rash, joint pain History of Present Illness: 31 yo Chadian speaking f w no significant pmh who presents to ER for evaluation of recent joint pains, rash, fatigue. she notes onset of joint pain 2 days ago. she states she has pain in multiple joints including her ankles, knees, wrist, elbows, and shoulders. Prior to that she had a rash to her joints involving both upper and lower extremities with associated itchiness. She also notes swelling to parish hands x 1 day. SHe reports fatigue x 3 days. She reports being seen at [facility] and getting a prescription for hydroxyzine, prednisone and pertherin cream. She reports taking medications with no relief. She notes chest discomfort which is "pressure " that began in the ER. She states the pain is similar to the pain in her joints. She states the pain is intermittent and 10/ 10. She notes sob with talking. She reports facial pain. She denies fevers, chills, sick contacts, body aches, cough, wheezing, dysuria, bug bites, change of detergents/perfumes. She reports her son is sick with the FLU. Rest of ros neg except for HPI Past Surgical History: ; Tubal Ligation. Social History: Non-smoker. Denies alcohol or drug use. Famhx: NC (denies famhx of rheumatological diseases) PCP: Dr. Nigel Tinajero General- alert in nad Hent- at/nc, [place], neck supple, trachea midline, no pharyngeal erythema, no lymphadenopathy Resp- lungs ctab, no cyanosis Cards- no JVD, s1s2 heard, no rubs, RRR, reproducible CP on exam Gi- non-tender, no guarding, no rebound, no rigidity Neuro- alert, cn 2-12 grossly intact, muscle strength 5/5 bue/ble Musk- TTP, parish elbows, knees, wrists, and fingers. Swelling to parish hands and finger Skin- urticarial rash to antecubial area, knees, and ankles. + Perioral rash. Psych- cooperative, no agitation Prob list joint pain rash Pruritus leukocytosis Mild hyponatremia CP a/p- 31 yo Ch[place] speaking f w no significant pmh who presents to ER for evaluation of recent joint pains, rash, fatigue and placed in obs for further evaluation. 1. Polyarticular Joint pain/rash/fatigue: Broad DDx; infectious vs Rheum vs vasculitis. Will check ESR, CRP, TSH, NASREEN, ANCA, Lyme titer, RPR, HIV. Rheum consult 2. Leukocytosis poss stress vs steroid effect: no fevers, FU Blood cultures, Monitor CBC 3. Mild Hyponatremia: Monitor BMP 4. Pruritus: Prn benadryl 5. Atypical CP, ? costochrondritis: Cxr pending, ekg nl, reproducible on exam FEN IVF, reg diet DVT prophy SCD, OOB dispo- obs for w/u of joint pain, rash, fatigue History Source: Patient Limitations to Obtaining History: Language Barrier - Past Medical History ...LMP: 04/24/11 - Smoking History Smoking history: Never smoked Have you smoked in the past 12 months: No Aproximately how many cigarettes per day: 0 - Alcohol/Substance Use Hx Alcohol Use: No Home Medications - Allergies Allergies/Adverse Reactions: Allergies Allergy/AdvReac Type Severity Reaction Status Date / Time No Known Drug Allergies Allergy Verified 08/07/17 17:53 - Home Medications Home Medications: Ambulatory Orders Prednisone [Prednisone 50 MG TABLETS] 50 mg PO DAILY #4 tablet 08/05/17 Permethrin 5% Topical Cream [Elimite -] 1 applic TP ONCE 1 Days #4 tube Prednisone [Prednisone 50 MG TABLETS] 50 mg PO DAILY 4 Days #4 tablet 08/06/17 hydrOXYzine HCL [Atarax -] 25 mg PO QID #28 tablet 08/06/17 Physical Examination Vital Signs: Vital Signs Temperature 98.1 F 08/07/17 17:58 Pulse Rate 81 08/07/17 17:58 Respiratory Rate 18 08/07/17 17:58 Blood Pressure 108/72 08/07/17 17:58 O2 Sat by Pulse Oximetry (%) 99 08/07/17 17:58 Labs: CBC, BMP 08/07/17 19:35 08/07/17 19:35 Visit type - Emergency Visit Emergency Visit: Yes ED Registration Date: 08/07/17 Care time: The patient presented to the Emergency Department on the above date and was hospitalized for further evaluation of their emergent condition. - New Patient This patient is new to me today: Yes Date on this admission: 08/08/17 - Critical Care Critical Care patient: No Hospitalist Screening - Colonoscopy Questionnaire Colonoscopy Questionnaire: Colonoscopy Questionnaire - Patient: 50 - 75 years old and never had a screening colonoscopy: No History of colon or rectal polyps, or CA: No History of IBD, Crohn's disease or UC: No History of abdominal radiation therapy as a child: No - Relative: 1 with colon or rectal CA, or polyps at age 60 or younger: No Colon or rectal CA diagnosed at age 45 or younger: No Multiple relatives with colon or rectal CA: No - Outcome: Screening Result: Negative Screen
[2017-08-07] MEDS: HEPARIN NA (PORCINE) 5,000 UNITS/ML 1ML VIAL SQ SCH (22:29)
[2017-08-07 22:43] LABS: URINE APPEARANCE Clear; URINE BILIRUBIN Negative (NEGATIVE); URINE BLOOD Negative (NEGATIVE); URINE COLOR YELLOW; URINE GLUCOSE (UA) Negative (NEGATIVE); URINE KETONE Negative (NEGATIVE); URINE LEUK ESTERASE Negative (NEGATIVE); URINE NITRITE Negative (NEGATIVE); URINE PROTEIN Negative (NEGATIVE); URINE UROBILINOGEN 0.2 (0.2-1.0)
[2017-08-07 22:44] LABS: HCG,QUALITATIVE URINE NEGATIVE
[2017-08-07] MEDS ORDERED: SODIUM CHLORIDE 1,000 ML IV SCH (22:45)
[2017-08-07] MEDS: IBUPROFEN 600 MG TABLET (FP) PO SCH (23:55)
[2017-08-08] MEDS ORDERED: MENTHOL/CAMPHOR 1 APPLIC BTL TP ONE (02:15)
[2017-08-08] MEDS ORDERED: BENZOCAINE/MENTH/CETYLPYRD CL 1 EACH LOZENGE MM PRN (02:16)
[2017-08-08] MEDS ORDERED: SODIUM CHLORIDE 500 ML IV STA (02:45)
[2017-08-08] MEDS ORDERED: methylPREDNISolone NA SUCC 125 MG/2 ML VIAL IVPB ONE (03:57)
[2017-08-08] MEDS ORDERED: SODIUM CHLORIDE 1,000 ML IV STA (03:58)
[2017-08-08] MEDS ORDERED: FAMOTIDINE 20 MG/50 ML IVPB 20 MG/50 ML MG IVPB ONE (04:15)
[2017-08-08] MEDS: HEPARIN NA (PORCINE) 5,000 UNITS/ML 1ML VIAL SQ SCH (06:45)
[2017-08-08] MEDS ORDERED: PATIENT'S OWN MEDICATION (NON-FORMULARY) (Prednisone [Prednisone 50 Mg Tablets] 50 MG) PO SCH (10:00)
[2017-08-08] MEDS ORDERED: MENTHOL/CAMPHOR 1 APPLIC BTL TP SCH (10:00)
[2017-08-08] MEDS: IBUPROFEN 600 MG TABLET (FP) PO SCH (11:30)
--- NOTE | 2017-08-08 13:27 | CONSULT ---
Consult Consult Specialty:: Rheumatology - History of Present Illness History of Present Illness: 40 year old female with no significant medical history admitted with skin rash and arthralgia. HPI 10 days ago the patient had extraction of her 4 wisdom molars. The next day she was started on Amoxicillin and PO Penicillin which she took for 7 days. Two days ago she developed diffuse pruritic skin rash, puffiness in hands and diffuse aches and pains, She was seen at the ER of this hospital and was prescribed Prednisone 50 mg daily which she took for 2 days. The symptoms did niot improve, she was seen at the ER of [facility] and diagnosed with Scabies. She was discharged and continues having significant pain, mainly in shoulders, elbows, hands and knees. At the present time she reports myalgia in arms and arthralgia in shoulders, wrists, hands and knees. Since admission she has not have fever. Laboratoru work-up revealed a WBC of 18.9, Glucose 179, Creatinine 0.8. Liver function tests and urinalysis normal. - History Source History Provided By: Patient, Medical Record - Past Medical History ...LMP: 04/24/11 - Alcohol/Substance Use Hx Alcohol Use: No - Smoking History Smoking history: Never smoked Have you smoked in the past 12 months: No Aproximately how many cigarettes per day: 0 Home Medications - Allergies Allergies/Adverse Reactions: Allergies Allergy/AdvReac Type Severity Reaction Status Date / Time No Known Drug Allergies Allergy Verified 08/07/17 17:53 - Home Medications Home Medications: Ambulatory Orders Prednisone [Prednisone 50 MG TABLETS] 50 mg PO DAILY #4 tablet 08/05/17 Permethrin 5% Topical Cream [Elimite -] 1 applic TP ONCE 1 Days #4 tube Prednisone [Prednisone 50 MG TABLETS] 50 mg PO DAILY 4 Days #4 tablet 08/06/17 hydrOXYzine HCL [Atarax -] 25 mg PO QID #28 tablet 08/06/17 Review of Systems - Review of Systems Constitutional: reports: Malaise Eyes: reports: No Symptoms HENT: reports: No Symptoms Neck: reports: No Symptoms Cardiovascular: reports: No Symptoms Respiratory: reports: No Symptoms Gastrointestinal: reports: No Symptoms Musculoskeletal: reports: Other (See HPI) Integumentary: reports: Other (See HPI) Physical Exam Vital Signs: Vital Signs Temperature 98.1 F 08/08/17 06:09 Pulse Rate 93 H 08/08/17 07:15 Respiratory Rate 18 08/08/17 10:58 Blood Pressure 126/52 08/08/17 07:15 O2 Sat by Pulse Oximetry (%) 100 08/08/17 10:58 Constitutional: Yes: Mild Distress Eyes: Yes: WNL HENT: Yes: WNL Neck: Yes: WNL Cardiovascular: Yes: WNL Respiratory: Yes: WNL Gastrointestinal: Yes: WNL Musculoskeletal: Yes: Other (Tenderness in both elbows, both wrists and knees. Swelling of the right wrist, all MCPs and all PIPs.) Labs: CBC, BMP 08/07/17 19:35 08/07/17 19:35 Problem List - Problems (1) Serum sickness Assessment/Plan: Typical presentation of serum sickness secondary to Ampicillin. It is unlikely that she has other inflammatory arthritis or other connective tissue disease. Plan: I suggest: DC Ibuprofen, start Naproxen 500 mg BID anc continue with Meclizine. She can be discharged. Code(s): T80.69XA - OTHER SERUM REACTION DUE TO OTHER SERUM, INITIAL ENCOUNTER
--- NOTE | 2017-08-08 14:04 | DS ---
Physical Exam: SUBJECTIVE: Patient seen and examined OBJECTIVE: Vital Signs Period Temp Pulse Resp BP Sys/[place] Pulse Ox Last 24 Hr 98.1 F-98.1 F 72-97 18-18 81-133/35-113 99-100 PHYSICAL EXAM GENERAL: The patient is awake, alert, and fully oriented, in no acute distress. HEAD: Normal with no signs of trauma. EYES: PERRL, extraocular movements intact, sclera anicteric, conjunctiva clear. ENT: Ears normal, nares patent, oropharynx clear without exudates, moist mucous membranes. NECK: Trachea midline, full range of motion, supple. LUNGS: Breath sounds equal, clear to auscultation bilaterally, no wheezes, no crackles, no accessory muscle use. HEART: Regular rate and rhythm, S1, S2 without murmur, rub or gallop. ABDOMEN: Soft, nontender, nondistended, normoactive bowel sounds, no guarding, no rebound, no hepatosplenomegaly, no masses. EXTREMITIES: 2+ pulses, warm, well-perfused, no edema. NEUROLOGICAL: Cranial nerves II through XII grossly intact. Normal speech, gait not observed. PSYCH: Normal mood, normal affect. SKIN: Warm, dry, normal turgor, no rashes or lesions noted. LABS Laboratory Results - last 24 hr 08/07/17 08/07/17 08/07/17 19:35 19:35 21:40 WBC 18.9 H D RBC 4.23 Hgb 11.8 Hct 34.6 MCV 82.0 MCH 28.0 MCHC 34.1 RDW 13.9 Plt Count 309 MPV 8.4 Neutrophils % 85.4 H Lymphocytes % 9.7 Monocytes % 4.7 Eosinophils % 0.0 Basophils % 0.2 ESR 9 Sodium 135 L Potassium 3.5 Chloride 106 Carbon Dioxide 22 D Anion Gap 7 L BUN 14 Creatinine < 0.8 Creat Clearance w eGFR > 60 Random Glucose 179 H D Lactic Acid 1.9 Calcium 8.6 Total Bilirubin < 0.5 D AST 18 ALT 13 Alkaline Phosphatase 62 Total Protein 6.7 Albumin 3.5 Urine Color Urine Appearance Urine pH Ur Specific [place]ilion Urine Protein Urine Glucose (UA) Urine Ketones Urine Blood Urine Nitrite Urine Bilirubin Urine Urobilinogen Ur Leukocyte Esterase Urine HCG, Qual RPR Titer HIV 1&2 Antibody Screen HIV P24 Antigen 08/07/17 08/07/1718 22:37 22:38 22:50 WBC RBC Hgb Hct MCV MCH MCHC RDW Plt Count MPV Neutrophils % Lymphocytes % Monocytes % Eosinophils % Basophils % ESR Sodium Potassium Chloride Carbon Dioxide Anion Gap BUN Creatinine Creat Clearance w eGFR Random Glucose Lactic Acid Calcium Total Bilirubin AST ALT Alkaline Phosphatase Total Protein Albumin Urine Color Yellow Urine Appearance Clear Urine pH 6.0 Ur Specific Pavilion 1.020 Urine Protein Negative Urine Glucose (UA) Negative Urine Ketones Negative Urine Blood Negative Urine Nitrite Negative Urine Bilirubin Negative Urine Urobilinogen 0.2 Ur Leukocyte Esterase Negative Urine HCG, Qual Negative RPR Titer Nonreactive HIV 1&2 Antibody Screen Negative HIV P24 Antigen Negative HOSPITAL COURSE: Date of Admission:08/07/17 Date of Discharge: 08/08/17 Pre hospital course 31 year-old female with no significant PMH who presented to ER for evaluation of recent joint pains, rash, fatigue. She noted onset of joint pain 2 days ago. she states she has pain in multiple joints including her ankles, knees, wrist, elbows, and shoulders. Prior to that she had a rash to her joints involving both upper and lower extremities with associated itchiness. She also notes swelling to parish hands x 1 day. SHe reports fatigue x 3 days. She reports being seen at [facility] and getting a prescription for hydroxyzine, prednisone and pertherin cream. She reports taking medications with no relief. She notes chest discomfort which is "pressure " that began in the ER. She states the pain is similar to the pain in her joints. She states the pain is intermittent and 10/ 10. She notes sob with talking. She reports facial pain. She denies fevers, chills, sick contacts, body aches, cough, wheezing, dysuria, bug bites, change of detergents/perfumes. She reports her son is sick with the FLU. Discharge Summary Reason For Visit: RASH AND PAIN TO HANDS, FEET AND PERIORITAL , ORAL Current Active Problems Leukocytosis (Acute) Polyarticular arthritis (Acute) Serum sickness (Acute) Serum sickness (Acute) Condition: Improved - Instructions Diet, Activity, Other Instructions: You have developed an adverse reaction to ampicillin. You should avoid taking ampicillin, penicillin, or any other drugs that contain penicillin. If in the future you are asked if you are allergic to anything, you should say "I am allergic to penicillin." You might want to wear a medic-alert bracelet. Four prescriptions have been sent to your pharmacy: 1. Naproxyn (anti-inflammatory) 2. Prilosec (to protect your stomach) 3. Hydroxazine/Atarax (anti-itching pills) 4. Hydrocortisone cream (anti-itching cream) Take these medications as directed. You may want to follow up with Dr. Johns at the [facility]. The contact information is enclosed. The clinic will accept your insurance. Return to the emergency departmnt for any new or worsening symptoms. Referrals: Alessandro Johns MD [Staff Physician] - 1 Week Disposition: HOME - Home Medications Comprehensive Discharge Medication List: Ambulatory Orders Prednisone [Prednisone 50 MG TABLETS] 50 mg PO DAILY #4 tablet 08/05/17 Permethrin 5% Topical Cream [Elimite -] 1 applic TP ONCE 1 Days #4 tube Prednisone [Prednisone 50 MG TABLETS] 50 mg PO DAILY 4 Days #4 tablet 08/06/17 hydrOXYzine HCL [Atarax -] 25 mg PO QID #28 tablet 08/06/17
[2017-08-08 14:13] VITALS: BP 114/39; PULSE 99; TEMP 98.8
--- NOTE | 2017-08-08 18:44 | EKG ---
Test Reason : Blood Pressure : / mmHG Vent. Rate : 091 BPM Atrial Rate : 091 BPM P-R Int : 198 ms QRS Dur : 082 ms QT Int : 362 ms P-R-T Axes : 051 058 033 degrees QTc Int : 445 ms NORMAL SINUS RHYTHM NORMAL ECG NO PREVIOUS ECGS AVAILABLE Confirmed by MD CHIN, KAREEM ([id number]) on 08/08/2017 6:44:19 PM Referred By: BRAXTON Confirmed By:KAREEM NEELY MD
[2017-08-12 16:27] LABS: ATYPICAL pANCA <1:20 titer (Neg:<1:20); C-ANCA <1:20 titer (Neg:<1:20); P-ANCA <1:20 titer (Neg:<1:20); PROTEINASE-3 ANTIBODY <3.5 U/mL (0.0-3.5)
== END 2017-08-08 14:22 | disposition home or self-care (01) ==
LOC: FER 17:51 → FM/S 22:51
PROVIDERS: ADMIT Internal Medicine; ATTEND Nurse Practitioner Acute Care
PROC: 3E0333Z Introduction of Anti-inflammatory into Peripheral Vein, Percutaneous Approach (ICD-10-PCS; principal; 2017-08-07)
PROC: 3E033GC Introduction of Other Therapeutic Substance into Peripheral Vein, Percutaneous Approach (ICD-10-PCS; 2017-08-07)
PROC: 3E0337Z Introduction of Electrolytic and Water Balance Substance into Peripheral Vein, Percutaneous Approach (ICD-10-PCS; 2017-08-07)
PROC: 3E013GC Introduction of Other Therapeutic Substance into Subcutaneous Tissue, Percutaneous Approach (ICD-10-PCS; 2017-08-07)
DX: T80.69XA Other serum reaction due to other serum, initial encounter (principal); T36.0X5A Adverse effect of penicillins, initial encounter; M00-M99 Diseases of the musculoskeletal system and connective tissue; L27.0 Generalized skin eruption due to drugs and medicaments taken internally; D72.829 Elevated white blood cell count, unspecified; Y92.89 Other specified places as the place of occurrence of the external cause
CPT/HCPCS: 36415; 80053; 81003; 83520; 83605; 84703; 85025; 85651; 86038; 86256; 86593; 86618; 86664; 87040; 87086; 87389; 93005; 96361; 96365; 96372; 96375; 99284-25; G0378; J1644; J7030

== ENCOUNTER 2018-03-18 04:52 | Emergency (ER) | payer OTHER ==
[2018-03-18] MEDS ORDERED: ACETAMINOPHEN 1000 MG/100 ML VIAL (NON FORMULARY) IVPB ONE (05:00)
[2018-03-18] MEDS ORDERED: SODIUM CHLORIDE 1,000 ML IV STA (05:00)
[2018-03-18] MEDS ORDERED: METOCLOPRAMIDE HCL INJECTION 10 MG/2 ML VIAL IVPUSH ONE (05:01)
[2018-03-18] MEDS ORDERED: ACETAMINOPHEN INJECTION 100 ML IVPB ONE (05:08)
[2018-03-18] MEDS ORDERED: METOCLOPRAMIDE HCL INJECTION 10 MG/2 ML VIAL ONE (05:08)
[2018-03-18 05:18] VITALS: BMI 63.4
--- NOTE | 2018-03-18 05:18 | PDOC ---
History of Present Illness - General Chief Complaint: Pain, Acute Stated Complaint: PAIN Time Seen by Provider: 03/18/18 04:54 History Source: Patient Exam Limitations: No Limitations - History of Present Illness Initial Comments: 03/18/18 05:12 Patient is a 32F with h/o here today complaining of 3 days of dysuria and lower abdominal pain. She also complains of associated nausea, headache, and back pain. Patient denies fevers and chills. Denies vomiting. LMP was 6 days ago. Last bowel movement today. No vaginal pain or discharge. No constipation or diarrhea. Past History - Past Medical History Allergies/Adverse Reactions: Allergies Allergy/AdvReac Type Severity Reaction Status Date / Time Penicillins Allergy Verified 03/18/18 04:58 ampicillin AdvReac Severe Verified 03/18/18 04:57 Home Medications: Ambulatory Orders Hydrocortisone 1% Ointment [Hytone 1% Ointment -] 1 applic TP BID #1 tube Naproxen [Naprosyn] 500 mg PO BID #10 tablet 08/08/17 Omeprazole Magnesium [Prilosec Otc] 20 mg PO DAILY #5 tablet. 08/08/17 hydrOXYzine HCL [Atarax -] 25 mg PO QID #28 tablet 08/08/17 Asthma: No Cancer: No Cardiac Disorders: No CVA: No COPD: No CHF: No DVT: No Dementia: No Diabetes: No Dialysis: No GI Disorders: No HTN: No Kidney Stones: No Liver Disease: No Psychiatric Problems: No Seizures: No Thyroid Disease: No - Surgical History Abdominal Surgery: Yes (tummy tuck ) - Reproductive History (#): 4 Para: 4 Cervical CA: No Dysfunctional Uterine Bleeding: No Ectopic : No Endometrial CA: No Polycystic Ovaries: No Therapeutic (s) & number: No Tubal Ligation: No Spontaneous : 0 - Immunization History Td Vaccination: Yes Immunization Up to Date: Yes - Suicide/Smoking/Psychosocial Hx Smoking Status: No Smoking History: Never smoked Years of Tobacco Use: 0 Have you smoked in the past 12 months: No Number of Cigarettes Smoked Daily: 0 Cigars Per Day: 0 Information on smoking cessation initiated: No Hx Alcohol Use: No Drug/Substance Use Hx: No Substance Use Type: None Hx Substance Use Treatment: No Review of Systems - Review of Systems Able to Perform ROS?: Yes Comments:: 03/18/18 05:18 GENERAL/CONSTITUTIONAL: No fever or chills. No weakness. HEAD, EYES, EARS, NOSE AND THROAT: No change in vision. No sore throat. CARDIOVASCULAR: No chest pain or shortness of breath RESPIRATORY: No cough, wheezing, or hemoptysis. GASTROINTESTINAL: +nausea, no vomiting, diarrhea or constipation. GENITOURINARY: +dysuria, +frequency, MUSCULOSKELETAL: No joint or muscle swelling or pain. No neck pain +back pain. SKIN: No rash NEUROLOGIC: +headache, no vertigo, loss of consciousness, or change in strength/ sensation. ENDOCRINE: No increased thirst. No abnormal weight change HEMATOLOGIC/LYMPHATIC: No anemia, easy bleeding, or history of blood clots. ALLERGIC/IMMUNOLOGIC: No hives or skin allergy. *Physical Exam - Vital Signs Last Vital Signs Temp Pulse Resp BP Pulse Ox 98.5 F 71 20 121/71 100 03/18/18 04:58 03/18/18 04:58 03/18/18 04:58 03/18/18 04:58 03/18/18 04:58 - Physical Exam Comments: 03/18/18 05:19 GENERAL: Awake, alert, and fully oriented, in no acute distress HEAD: No signs of trauma, normocephalic, atraumatic EYES: PERRLA, EOMI, sclera anicteric, conjunctiva clear ENT: Auricles normal inspection, hearing grossly normal, nares patent, oropharynx clear without exudates. Moist mucosa NECK: Normal ROM, supple, no lymphadenopathy, JVD, or masses LUNGS: No distress, speaks full sentences, clear to auscultation bilaterally HEART: Regular rate and rhythm, normal S1 and S2, no murmurs, rubs or gallops, peripheral pulses normal and equal bilaterally. ABDOMEN: Soft, +suprapubic tenderness normoactive bowel sounds. No guarding, no rebound. No masses EXTREMITIES: Normal inspection, Normal range of motion, no edema. No clubbing or cyanosis. NEUROLOGICAL: Cranial nerves II through XII grossly intact. Normal speech, normal gait, no focal sensorimotor deficits SKIN: Warm, Dry, normal turgor, no rashes or lesions noted. ED Treatment Course - LABORATORY CBC & Chemistry Diagram: 03/18/18 05:05 03/18/18 05:05 Medical Decision Making - Medical Decision Making 03/18/18 05:19 Patient is 32F here today with suprapubic pain and dysuria. Likely UTI. Believe patient's back pain is most likely secondary to MSK pain, will reassess after fluids, tylenol and reglan. Patient is non-toxic appearing, afebrile. Considering possibility of pyelo but believe this is lower probability. Will evaluate with cbc, cmp, ua, upreg, lipase. 03/18/18 05:42 U preg negative. CBC normal. UA shows UTI. Culture sent. Pending CMP. 03/18/18 06:11 CMP normal. Patient feels improved. Will discharge home with return precautions. *DC/Admit/Observation/Transfer Diagnosis at time of Disposition: UTI (urinary tract infection) - Discharge Dispostion Disposition: HOME Condition at time of disposition: Stable Decision to Admit order: No - Referrals - Patient Instructions Printed Discharge Instructions: DI for Urinary Tract Infection (UTI) Additional Instructions: Please follow up with your primary care physician this week. Please take your antibiotic until the entire prescription is completed, even if you feel better. Please return if you have any new, worsening or concerning symptoms, especially fever and increasing pain. - Post Discharge Activity
[2018-03-18 05:22] LABS: BASO % 0.6 % (0-2.0); EOS % 1.7 % (0-4.5); HEMATOCRIT 39.9 % (32.4-45.2); HEMOGLOBIN 13.1 GM/dL (10.7-15.3); LYMPH % 24.6 % (8-40); MCH 27.3 pg (25.7-33.7); MCHC 32.8 g/dl (32.0-36.0); MEAN CELL VOLUME 83.4 fl (80-96); MEAN PLT VOLUME 8.2 fl (7.5-11.1); MONO % 8.6 % (3.8-10.2); NEUT % 64.5 % (42.8-82.8); PLATELET COUNT 312 K/MM3 (134-434); RBC 4.78 M/mm3 (3.60-5.2); RDW 16.5 % (11.6-15.6); WHITE BLOOD COUNT 9.3 K/mm3 (4.0-10.0)
--- NOTE | 2018-03-18 05:23 | PDOC ---
Attending Attestation - Resident Resident Name: Jose Villar - ED Attending Attestation I have performed the following: I have examined & evaluated the patient, The case was reviewed & discussed with the resident, I agree w/resident's findings & plan - HPI HPI: 03/18/18 05:19 healthy 32y/o F with no sig pmh p/w 3d sxs of dysuria/urgency and now 1d constant suprapubic and low back pain. no f/c but some nausea. no hematuria, LMP 1 wk ago. no h/o recurring UTI. - Physicial Exam PE: 03/18/18 05:22 Afebrile, vital signs normal Generally well-appearing, slight discomfort secondary to suprapubic and low back pain Abdomen is soft and nondistended, suprapubic discomfort to palpation without guarding or rebound, no unilateral CVA tenderness - Medical Decision Making 03/18/18 05:22 32-year-old female with presentation consistent with UTI, no findings concerning for sepsis, low suspicion for pyelonephritis. Labs, urinalysis, urine culture IV fluids, pain control Antibiotics given symptomatic UTI Disposition accordingly 03/18/18 06:17 labs nl, UA consistent with infection, culture in lab. feels better. d/c on bactrim given pcn allergy, understands return criteria.
[2018-03-18 05:26] LABS: URINE APPEARANCE CLOUDY; URINE BILIRUBIN NEGATIVE (<2.0 mg/dL); URINE COLOR YELLOW; URINE GLUCOSE (UA) NEGATIVE (NEGATIVE); URINE KETONE NEGATIVE (NEGATIVE); URINE LEUK ESTERASE 3+ (NEGATIVE); URINE NITRITE NEGATIVE (NEGATIVE); URINE PROTEIN 1+ (NEGATIVE); URINE UROBILINOGEN NEGATIVE mg/dL (0.2-1.0)
[2018-03-18 05:29] LABS: EPI CELLS RARE /HPF (FEW); URINE MUCUS RARE
[2018-03-18 06:08] LABS: ALBUMIN 3.7 g/dl (3.4-5.0); ALK PHOS 86 U/L (45-117); ANION GAP 6 MMOL/L (8-16); BILIRUBIN,TOTAL 0.3 mg/dL (0.2-1); BLOOD UREA NITROGEN 12 mg/dL (7-18); CALCIUM 9.5 mg/dL (8.5-10.1); CHLORIDE 104 mmol/L (98-107); CO2 31 mmol/L (21-32); CREATININE 0.8 mg/dL (0.55-1.3); GLUCOSE,RANDOM 94 mg/dL (74-106); LIPASE 117 U/L (73-393); POTASSIUM 3.9 mmol/L (3.5-5.1); SGOT/AST 12 U/L (15-37); SGPT/ALT 18 U/L (13-61); SODIUM 141 mmol/L (136-145); TOT PROT 7.5 g/dl (6.4-8.2)
[2018-03-18] MEDS ORDERED: SULFAMETHOXAZOLE/TRIMETHOPRIM 800MG/160MG D.S. TABLET PO ONE (06:12)
[2018-03-18 06:15] VITALS: BP 117/65; PULSE 63; TEMP 97.9
[2018-03-18] MEDS ORDERED: SULFAMETHOXAZOLE/TRIMETHOPRIM 800MG/160MG D.S. TABLET ONE (06:21)
== END 2018-03-18 06:44 | disposition home or self-care (01) ==
LOC: JER 04:52
PROC: 3E0337Z Introduction of Electrolytic and Water Balance Substance into Peripheral Vein, Percutaneous Approach (ICD-10-PCS; principal; 2018-03-18)
PROC: 3E033NZ Introduction of Analgesics, Hypnotics, Sedatives into Peripheral Vein, Percutaneous Approach (ICD-10-PCS; 2018-03-18)
PROC: 3E033GC Introduction of Other Therapeutic Substance into Peripheral Vein, Percutaneous Approach (ICD-10-PCS; 2018-03-18)
DX: N39.0 Urinary tract infection, site not specified (principal)
CPT/HCPCS: 36415; 80053; 81003; 81015; 83690; 84703; 85025; 87086; 87186; 96361; 96374; 96375; 99284-25; J0131; J7030

== ENCOUNTER 2018-09-11 06:15 | Emergency (ER) | payer OTHER ==
[2018-09-11 07:08] VITALS: BP 100/55; PULSE 71; TEMP 99.1; BMI 30.4
[2018-09-11] MEDS ORDERED: ACETAMINOPHEN 325 MG TABLET (FP) PO ONE (07:27)
--- NOTE | 2018-09-11 07:47 | PDOC ---
History of Present Illness - General Chief Complaint: Pain Stated Complaint: ABD PAIN Time Seen by Provider: 09/11/18 07:09 History Source: Patient Exam Limitations: No Limitations Past History - Past Medical History Allergies/Adverse Reactions: Allergies Allergy/AdvReac Type Severity Reaction Status Date / Time amoxicillin Allergy Verified 09/11/18 07:09 Penicillins Allergy Verified 09/11/18 07:09 ampicillin AdvReac Severe Verified 09/11/18 07:09 Home Medications: Ambulatory Orders Hydrocortisone 1% Ointment [Hytone 1% Ointment -] 1 applic TP BID #1 tube Naproxen [Naprosyn] 500 mg PO BID #10 tablet 08/08/17 Omeprazole Magnesium [Prilosec Otc] 20 mg PO DAILY #5 tablet. 08/08/17 hydrOXYzine HCL [Atarax -] 25 mg PO QID #28 tablet 08/08/17 Sulfamethoxazole/Trimethoprim [Bactrim Ds -] 1 tab PO BID #6 tablet 03/18/18 Asthma: No Cancer: No Cardiac Disorders: No CVA: No COPD: No CHF: No DVT: No Dementia: No Diabetes: No Dialysis: No GI Disorders: No HTN: No Kidney Stones: No Liver Disease: No Psychiatric Problems: No Seizures: No Thyroid Disease: No - Surgical History Abdominal Surgery: Yes (tummy tuck ) - Reproductive History (#): 4 Para: 4 Cervical CA: No Dysfunctional Uterine Bleeding: No Ectopic : No Endometrial CA: No Polycystic Ovaries: No Therapeutic (s) & number: No Tubal Ligation: No Spontaneous : 0 - Immunization History Td Vaccination: Yes Immunization Up to Date: Yes - Suicide/Smoking/Psychosocial Hx Smoking Status: No Smoking History: Never smoked Years of Tobacco Use: 0 Have you smoked in the past 12 months: No Number of Cigarettes Smoked Daily: 0 Cigars Per Day: 0 Hx Alcohol Use: No Drug/Substance Use Hx: No Substance Use Type: None Hx Substance Use Treatment: No Abd/GI Specific PMHX - Complaint Specific PMHX Colitis: No Diverticulitis: No Gall Bladder Disease: No GERD: No Hepatitis: No Irritable Bowel Synd (IBS): No Pancreatitis: No GI Ulcer Disease: No *Physical Exam - Vital Signs Last Vital Signs Temp Pulse Resp BP Pulse Ox 99.1 F 71 18 100/55 L 96 09/11/18 07:04 09/11/18 07:04 09/11/18 07:04 09/11/18 07:04 09/11/18 07:04 - Physical Exam General Appearance: No: Apparent Distress Respiratory/Chest: positive: Lungs Clear, Normal Breath Sounds. negative: Respiratory Distress Cardiovascular: positive: Regular Rhythm, Regular Rate, S1, S2. negative: Murmur Gastrointestinal/Abdominal: positive: Tender (mild TTP along epigastric region, more TTP along RLQ), Soft. negative: Distended, Guarding, Rebound, Mass Musculoskeletal: negative: CVA Tenderness Integumentary: positive: Normal Color Neurologic: positive: Alert, Normal Mood/Affect ED Treatment Course - LABORATORY CBC & Chemistry Diagram: 09/11/18 08:12 09/11/18 08:12 Medical Decision Making - Medical Decision Making 32 y/o F with no sig pmh presents with epigastric pain which occasionally radiates to lower abdomen x 1 week not exacerbated by anything in particular. Went to see PCP 2 days ago and was was given Zantac and told to get additional blood-work and imaging, which is pending to be done. States the Zantac has not been helping with pain. Denies fever, sob, cp, n/v/d, urinary complaints, unusual vaginal discharge. LNMP 3/6 (has regular menstrual cycles) Consider appendicitis, ovarian cyst; less suspicious for ovarian torsion Patient otherwise nontoxic appearing Plan: Labs, UCG, CT A/P 09/11/18 07:44 Labs reviewed and unremarkable CT A/P negative for any acute findings other than incidental small mel- umbilical hernia and stool in colon (possibly causing pain) Patient states she no longer has pain after Tylenol Advised f/u with PCP 09/11/18 10:31 *DC/Admit/Observation/Transfer Diagnosis at time of Disposition: Abdominal pain Qualifiers: Abdominal location: generalized Qualified Code(s): R10.84 - Generalized abdominal pain - Discharge Dispostion Disposition: HOME Condition at time of disposition: Improved Decision to Admit order: No - Referrals Referrals: Amish Garcia MD [Primary Care Provider] - 2 Days - Patient Instructions Printed Discharge Instructions: DI for Abdominal Pain-Adult Additional Instructions: Thank you for choosing [facility]. It was a pleasure taking care of you. Your lab work was normal You were noted with incidental small abdominal hernia on your CT scan You were noted to have stool throughout your colon, possibly causing your pain Drink lots of water - at least 2 L daily Also increase fiber intake - eat more fruits, veggies in your diet Follow-up with your doctor for further eval Return to the Emergency Department if your symptoms worsen or persist or have other concerning symptoms. Stacie por elegir el [facility]. Fue un placer cuidar de ti. Tu trabajo de laboratorio fue normal Se le not anita pequea hernia abdominal incidental en cross tomografa computarizada Se observ que reji heces en todo el colon, posiblemente causando dolor Staci raeann agua - por lo menos 2 L diariamente Tambin aumenta el consumo de fibra: come ms frutas y verduras en tu dieta Feng un seguimiento con cross mdico para anita evaluacin adicional. Regrese al Departamento de Emergencias si yeny sntomas empeoran o persisten o si tiene otros sntomas relacionados. Print Language: ARMENIAN - Post Discharge Activity
[2018-09-11] MEDS ORDERED: ACETAMINOPHEN 325 MG TABLET (FP) ONE (08:11)
[2018-09-11 08:28] LABS: BASO % 0.2 % (0-2.0); EOS % 1.2 % (0-4.5); HEMOGLOBIN 12.7 GM/dL (10.7-15.3); LYMPH % 32.7 % (8-40); MCH 28.8 pg (25.7-33.7); MCHC 33.4 g/dl (32.0-36.0); MEAN CELL VOLUME 86.2 fl (80-96); MEAN PLT VOLUME 8.1 fl (7.5-11.1); MONO % 8.3 % (3.8-10.2); NEUT % 57.6 % (42.8-82.8); PLATELET COUNT 243 K/MM3 (134-434); RDW 14.8 % (11.6-15.6); WHITE BLOOD COUNT 6.9 K/mm3 (4.0-10.0)
[2018-09-11 08:29] LABS: URINE APPEARANCE CLEAR; URINE BILIRUBIN NEGATIVE (NEGATIVE); URINE COLOR YELLOW; URINE GLUCOSE (UA) NEGATIVE (NEGATIVE); URINE KETONE NEGATIVE (NEGATIVE); URINE LEUK ESTERASE NEGATIVE (NEGATIVE); URINE NITRITE NEGATIVE (NEGATIVE); URINE PROTEIN NEGATIVE (NEGATIVE)
[2018-09-11 08:32] LABS: HCG,QUALITATIVE URINE Negative
[2018-09-11] MEDS ORDERED: MAG HYDROX/AL HYDROX/SIMETH 30 ML UNIT-DOSE CUP PO ONE (08:47)
[2018-09-11] MEDS ORDERED: RANITIDINE HCL 150 MG TABLET (FP) PO ONE (08:48)
[2018-09-11 08:57] LABS: ALBUMIN 3.6 g/dl (3.4-5.0); ALK PHOS 75 U/L (45-117); ANION GAP 3 MMOL/L (8-16); BILIRUBIN,TOTAL 0.2 mg/dL (0.2-1); BLOOD UREA NITROGEN 11 mg/dL (7-18); CHLORIDE 107 mmol/L (98-107); CO2 28 mmol/L (21-32); CREATININE 0.7 mg/dL (0.55-1.3); GLUCOSE,RANDOM 92 mg/dL (74-106); LIPASE 132 U/L (73-393); POTASSIUM 4.3 mmol/L (3.5-5.1); SGOT/AST 15 U/L (15-37); SGPT/ALT 16 U/L (13-61); SODIUM 139 mmol/L (136-145); TOT PROT 7.2 g/dl (6.4-8.2)
[2018-09-11] MEDS ORDERED: RANITIDINE HCL 150 MG TABLET (FP) ONE (09:43)
[2018-09-11] MEDS ORDERED: MAG HYDROX/AL HYDROX/SIMETH 30 ML UNIT-DOSE CUP ONE (09:43)
== END 2018-09-11 10:50 | disposition home or self-care (01) ==
LOC: JER 06:15
DX: R10.84 Generalized abdominal pain (principal)
CPT/HCPCS: 36415; 74177-TC; 80053; 81003; 83690; 84703; 85025; 99282-25

== ENCOUNTER 2019-04-21 22:07 | Emergency (ER) | payer OTHER ==
[2019-04-21 22:15] VITALS: BP 127/66; PULSE 82; TEMP 98.1; BMI 31.3
[2019-04-21 22:31] LABS: EPITHELIAL CELLS FEW /hpf
[2019-04-21] MEDS ORDERED: PHENAZOPYRIDINE HCL 100 MG TABLET (FP) PO ONE (22:35)
[2019-04-21] MEDS ORDERED: NITROFURANTOIN MACROCRYSTAL 50 MG CAPSULE (FP) ONE (22:36)
[2019-04-21] MEDS ORDERED: PHENAZOPYRIDINE HCL 100 MG TABLET (FP) ONE (22:36)
[2019-04-21] MEDS ORDERED: NITROFURANTOIN MACROCRYSTAL 50 MG CAPSULE (FP) PO SCH (22:45)
== END 2019-04-21 22:55 | disposition home or self-care (01) ==
LOC: FER 22:07
DX: N30.00 Acute cystitis without hematuria (principal); Z88.0 Allergy status to penicillin; Z88.1 Allergy status to other antibiotic agents
CPT/HCPCS: 81003; 81015; 84703; 87086; 87186; 99282-25

== ENCOUNTER 2019-06-09 18:22 | Emergency (ER) | payer OTHER ==
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
[2019-06-09] MEDS ORDERED: KETOROLAC TROMETHAMINE 30 MG/1 ML VIAL IM ONE (18:51)
[2019-06-09] MEDS ORDERED: ONDANSETRON *ODT* 4 MG TABLET SL ONE (18:51)
[2019-06-09 18:52] VITALS: BP 115/60; PULSE 78; TEMP 97.9; BMI 31.8
[2019-06-09] MEDS ORDERED: KETOROLAC TROMETHAMINE 30 MG/1 ML VIAL ONE (18:57)
[2019-06-09] MEDS ORDERED: ONDANSETRON *ODT* 4 MG TABLET ONE (18:57)
== END 2019-06-09 19:18 | disposition home or self-care (01) ==
LOC: FER 18:22
PROC: 3E0233Z Introduction of Anti-inflammatory into Muscle, Percutaneous Approach (ICD-10-PCS; principal; 2019-06-09)
DX: B34.9 Viral infection, unspecified (principal); T23.251A Burn of second degree of right palm, initial encounter; T31.0 Burns involving less than 10% of body surface; V49.9XXA Car occupant (driver) (passenger) injured in unspecified traffic accident, initial encounter; Y93.89 Activity, other specified; Y92.410 Unspecified street and highway as the place of occurrence of the external cause; Z88.0 Allergy status to penicillin; Z88.1 Allergy status to other antibiotic agents
CPT/HCPCS: 96372; 99282-25; Q0162

== ENCOUNTER 2019-07-27 22:45 | Emergency (ER) | payer OTHER ==
[2019-07-27 22:50] VITALS: BP 100/73; PULSE 76; TEMP 97.5; BMI 31.9
[2019-07-27] MEDS ORDERED: SODIUM CHLORIDE 1,000 ML IV ONE (22:59)
[2019-07-27] MEDS ORDERED: ONDANSETRON 4 MG/2 ML VIAL IVPB ONE (22:59)
--- NOTE | 2019-07-27 23:01 | PDOC ---
History of Present Illness - General Chief Complaint: Nausea/Vomiting Stated Complaint: N/V/D Time Seen by Provider: 07/27/19 22:50 History Source: Patient Exam Limitations: No Limitations - History of Present Illness Travel History: No Initial Comments: 07/27/19 23:00 33y F no pmhx presens with abdominal pain. Pt endroses feeling crampy abdominal pain associated with 3 episodes of nbnb vomiting and watery yellow stool since last night. Pt denies any fever/chills, dysuria, blood in stool or vomit. No sick contacts. pt does endorse travelling from on wednesday. pt denies any other symptoms including cough, sob, cp, headache, dizziness, sore thraot. ROS Constitutional - no reported Fever, Chills, HEENT: no reported vision changes, sore throat Respiratory: no reported cough, sob, hemoptysis Cardiac: no reported chest pain, palpitations, light headedness, leg swelling Abd/GI: +nausea, vomiting, abd pain, diarrhea no reported blood per rectum, melena : no reported dysuria, frequency, discharge Musculskelatal - no reported back pain, joint swelling skin - no reported bruising, erythema, rash neurological: no reported headache, numbness, focal weakness, tingling, ataxia, hematologic: no reported easy bruising, easy bleeding Physicial Exam GENERAL: The patient is awake, alert, and fully oriented, Nontoxic - in no acute distress. HEAD: Normocephalic, atraumatic. EYES: extraocular movements intact, sclera anicteric, conjunctiva clear. ENT: Normal voice, Moist mucous membranes. NECK: Normal range of motion, supple LUNGS: Breath sounds equal, clear to auscultation bilaterally. No wheezes, no rhonchi, no rales. HEART: Regular rate and rhythm, normal S1 and S2 without murmur, rub or gallop. ABDOMEN: Soft, Mild diffuse tenderness, no focality, No guarding, no rebound. No CVA tenderness EXTREMITIES: Normal range of motion, no edema. NEUROLOGICAL: No facial assymetry, Normal speech, Moving all 4 extremities spontaneously and symmetrically PSYCH: Normal mood, normal affect. SKIN: Warm, Dry, normal turgor, Likely gastroenteritis the patient does have some mild diffuse tenderness, It is it is nondistended, there is no focal tenderness suggest appendicitis or diverticulitis. We will give the patient fluids, Zofran will check basic labs will rule out and UTI. Past History - Past Medical History Allergies/Adverse Reactions: Allergies Allergy/AdvReac Type Severity Reaction Status Date / Time amoxicillin Allergy Verified 06/09/19 18:36 Penicillins Allergy Verified 06/09/19 18:36 ampicillin AdvReac Severe Verified 06/09/19 18:36 Home Medications: Ambulatory Orders Ibuprofen [Motrin -] 600 mg PO TID PRN #28 tablet MDD 3 06/09/19 Omeprazole 20 mg PO DAILY #14 tablet. 07/28/19 Ondansetron [Zofran -] 4 mg PO TID PRN #14 tablet 07/28/19 Asthma: No Cancer: No Cardiac Disorders: No CVA: No COPD: No CHF: No DVT: No Dementia: No Diabetes: No Dialysis: No GI Disorders: No HTN: No Kidney Stones: No Liver Disease: No Psychiatric Problems: No Seizures: No Thyroid Disease: No - Surgical History Abdominal Surgery: Yes (tummy tuck ) - Reproductive History (#): 4 Para: 4 Cervical CA: No Dysfunctional Uterine Bleeding: No Ectopic : No Endometrial CA: No Polycystic Ovaries: No Therapeutic (s) & number: No Tubal Ligation: No Spontaneous : 0 - Immunization History Td Vaccination: Yes Immunization Up to Date: Yes - Psycho Social/Smoking Cessation Hx Smoking Status: No Smoking History: Never smoked Years of Tobacco Use: 0 Have you smoked in the past 12 months: No Number of Cigarettes Smoked Daily: 0 Cigars Per Day: 0 Hx Alcohol Use: No Drug/Substance Use Hx: No Substance Use Type: None Hx Substance Use Treatment: No Abd/GI Specific PMHX - Complaint Specific PMHX Colitis: No Diverticulitis: No Gall Bladder Disease: No GERD: No Hepatitis: No Irritable Bowel Synd (IBS): No Pancreatitis: No GI Ulcer Disease: No *Physical Exam - Vital Signs Last Vital Signs Temp Pulse Resp BP Pulse Ox 97.5 F L 76 16 100/73 100 07/27/19 22:47 07/27/19 22:47 07/27/19 22:47 07/27/19 22:47 07/27/19 22:47 ED Treatment Course - LABORATORY CBC & Chemistry Diagram: 07/27/19 23:05 07/27/19 23:05 Medical Decision Making - Medical Decision Making 07/28/19 00:26 Patient's blood work was reviewed it is unremarkable. Abdomen was reassessed and soft and nontender Patient is feeling improved I will discharge patient to follow-up with primary care, return precautions were discussed. I discussed the physical exam findings, ancillary test results and final diagnoses with the patient. I answered all of the patient's questions. The patient was satisfied with the care received and felt comfortable with the discharge plan and treatment plan. The patient will call their primary care physician within 24 hours to arrange follow-up and will return to the Emergency Department with any new, persistent or worsening symptoms. Discharge - Discharge Information Problems reviewed: Yes Clinical Impression/Diagnosis: Gastroenteritis Condition: Improved Disposition: HOME - Admission No - Follow up/Referral Referrals: [facility] [place] [facility] [place] [Provider Group] - Patient Discharge Instructions Patient Printed Discharge Instructions: DI for Viral Gastroenteritis -- Adult Additional Instructions: Regrese al departamento de emergencias de inmediato con CUALQUIER sntoma nuevo , persistente o que empeore, incluido el empeoramiento del dolor abdominal, fiebre, incapacidad para tolerar la ingesta oral, dolor en el pecho, falta de aliento o cualquier otra inquietud. Mantente nacho hidratado. DEBE llamar y hacer un seguimiento con cross mdico maana. Rcoss visita al departamento de emergencias no est completa sin un seguimiento con cross mdico para la reevaluacin. Asegrese de que cross mdico revise los resultados de cross evaluacin de emergencia. Return to the emergency department immediately with ANY new, persistent or worsening symptoms including worsening abdominal pain, fevers, inability to tolerate oral intake, chest pain, shortness of breath or any other concerns. Stay well hydrated. You MUST call and follow up with your doctor tomorrow. Your emergency department visit is not complete without a followup with your doctor for reevaluation. Please make sure your doctor reviews the results of your emergency evaluation. Print Language: MOHAWK - Post Discharge Activity
[2019-07-27] MEDS ORDERED: ACETAMINOPHEN 325 MG TABLET (FP) PO ONE (23:02)
[2019-07-27] MEDS ORDERED: ACETAMINOPHEN 325 MG TABLET (FP) ONE (23:11)
[2019-07-27] MEDS ORDERED: ONDANSETRON 4 MG/2 ML VIAL ONE (23:11)
[2019-07-27 23:21] LABS: BASO % 0.4 % (0-2.0); EOS % 1.3 % (0-4.5); HEMATOCRIT 39.1 % (32.4-45.2); HEMOGLOBIN 12.8 GM/dl (10.7-15.3); LYMPH % 19.6 % (8-40); MCH 27.9 pg (25.7-33.7); MCHC 32.6 g/dl (32.0-36.0); MEAN CELL VOLUME 85.6 fl (80-96); MEAN PLT VOLUME 8.1 fl (7.5-11.1); MONO % 7.4 % (3.8-10.2); NEUT % 71.3 % (42.8-82.8); PLATELET COUNT 308 K/MM3 (134-434); RBC 4.57 M/mm3 (3.60-5.2); RDW 14.9 % (11.6-15.6); WHITE BLOOD COUNT 9.7 K/mm3 (4.0-10.8)
[2019-07-27 23:25] LABS: URINE APPEARANCE CLEAR; URINE COLOR YELLOW; URINE GLUCOSE (UA) NEGATIVE (NEGATIVE)
[2019-07-27 23:26] LABS: URINE BILIRUBIN 1+ (NEGATIVE); URINE KETONE NEGATIVE (NEGATIVE); URINE LEUK ESTERASE NEGATIVE (NEGATIVE); URINE NITRITE NEGATIVE (NEGATIVE); URINE PROTEIN NEGATIVE (NEGATIVE); URINE UROBILINOGEN 0.2 (0.2-1.0)
[2019-07-27 23:31] LABS: ALBUMIN 3.6 g/dl (3.4-5.0); BILIRUBIN,TOTAL 0.5 mg/dl (0.2-1); CALCIUM 8.7 mg/dl (8.5-10); CREATININE 0.7 mg/dl (0.55-1.3); POTASSIUM 3.9 mmol/L (3.5-5.1)
== END 2019-07-28 00:36 | disposition home or self-care (01) ==
LOC: FER 22:45
PROC: 3E033GC Introduction of Other Therapeutic Substance into Peripheral Vein, Percutaneous Approach (ICD-10-PCS; principal; 2019-07-27)
PROC: 3E0337Z Introduction of Electrolytic and Water Balance Substance into Peripheral Vein, Percutaneous Approach (ICD-10-PCS; 2019-07-27)
DX: K52.9 Noninfective gastroenteritis and colitis, unspecified (principal)
CPT/HCPCS: 36415; 80053; 81003; 84703; 85025; 99284-25; J7030

== ENCOUNTER 2019-08-01 08:41 | Emergency (ER) | payer OTHER ==
[2019-08-01 08:47] VITALS: BP 100/64; PULSE 76; TEMP 98.9; BMI 31.9
--- NOTE | 2019-08-01 09:29 | PDOC ---
History of Present Illness - General Chief Complaint: Urinary Problem Stated Complaint: URINARY SYMPTOMS History Source: Patient Exam Limitations: No Limitations - History of Present Illness Initial Comments: 08/01/19 09:25 33 yo F with h/o prior uti in 05/02 here with c/o dysuria, frequency and urgency. feels like similar uti in the past .no f/c does have low back pain. pain lower abd. has scant whitish vaginal discharge. no ithcing, no new sexual partners no concerns for std. no other complaints. no rash Past History - Past Medical History Allergies/Adverse Reactions: Allergies Allergy/AdvReac Type Severity Reaction Status Date / Time amoxicillin Allergy Verified 08/01/19 08:42 Penicillins Allergy Verified 08/01/19 08:42 ampicillin AdvReac Severe Verified 08/01/19 08:42 Home Medications: Ambulatory Orders Doxycycline Hyclate 100 mg PO BID #20 capsule MDD 2 08/01/19 Asthma: No Cancer: No Cardiac Disorders: No CVA: No COPD: No CHF: No DVT: No Dementia: No Diabetes: No Dialysis: No GI Disorders: No HTN: No Kidney Stones: No Liver Disease: No Psychiatric Problems: No Seizures: No Thyroid Disease: No - Surgical History Abdominal Surgery: Yes (tummy tuck ) - Reproductive History (#): 4 Para: 4 Cervical CA: No Dysfunctional Uterine Bleeding: No Ectopic : No Endometrial CA: No Polycystic Ovaries: No Therapeutic (s) & number: No Tubal Ligation: No Spontaneous : 0 - Immunization History Td Vaccination: Yes Immunization Up to Date: Yes - Psycho Social/Smoking Cessation Hx Smoking Status: No Smoking History: Never smoked Years of Tobacco Use: 0 Have you smoked in the past 12 months: No Number of Cigarettes Smoked Daily: 0 Cigars Per Day: 0 Information on smoking cessation initiated: No Hx Alcohol Use: No Drug/Substance Use Hx: No Substance Use Type: None Hx Substance Use Treatment: No Review of Systems - Review of Systems Constitutional: No: Chills, Diaphoresis HEENTM: No: Eye Pain Respiratory: No: Cough, Orthopnea Cardiac (ROS): No: Chest Pain, Edema ABD/GI: No: Nausea, Vomiting : Yes: Burning, Dysuria, Discharge, Urgency. No: Hematuria Musculoskeletal: Yes: Back Pain All Other Systems: Reviewed and Negative *Physical Exam - Vital Signs Last Vital Signs Temp Pulse Resp BP Pulse Ox 98.9 F 76 20 100/64 99 08/01/19 08:42 08/01/19 08:42 08/01/19 08:42 08/01/19 08:42 08/01/19 08:42 - Physical Exam 08/01/19 09:27 awake alert lungs clear bilat heart rrr no mrg abd soft mild suprapubic ttp.pelvic with scant whitish dc in vault, no adnexal tenderness. mild cmt. small abrasion/ tear at base vagina outer edge. labia majora 08/01/19 10:47 Medical Decision Making - Medical Decision Making 08/01/19 09:28 33 yo F with h/o prior uti, here with urinary complaints. scant vag discharge. plan ua r/o uti, ucg chlamydia / ghonorrhea sent. 08/01/19 10:47 pt ua negative. tvus sent t/o fluid collection cyst or ovarian torsion. normal tvus. plan treat with ceftriaxon and doxycycline dc home fu ob/ quiller hand Discharge - Discharge Information Problems reviewed: Yes Clinical Impression/Diagnosis: Urethritis, Cervicitis Condition: Good Disposition: HOME - Admission No - Additional Discharge Information Prescriptions: Doxycycline Hyclate 100 mg PO BID #20 capsule MDD 2 - Follow up/Referral Referrals: Arnulfo Boyer MD [Staff Physician] - Abner Christie MD [Staff Physician] - - Patient Discharge Instructions Patient Printed Discharge Instructions: DI for Acute Cervicitis Additional Instructions: you were given antibiotic called ceftriaxone today. you were also given prescription for doxycycline 100 mg twice daily x 10 days. return for any problems or concerns. follow up with your budget technician. return for fever, chills or any concerns. Print Language: KYRGYZ - Post Discharge Activity
[2019-08-01] MEDS ORDERED: DOXYCYCLINE HYCLATE 100 MG CAPSULE PO ONE ×2 (10:51→10:53)
== END 2019-08-01 11:07 | disposition home or self-care (01) ==
LOC: FER 08:41
DX: N34.2 Other urethritis (principal); N72 Inflammatory disease of cervix uteri; Z88.8 Allergy status to other drugs, medicaments and biological substances; Z88.0 Allergy status to penicillin
CPT/HCPCS: 36415; 76830-TC; 81003; 81025; 87086; 87186; 87491; 87591; 96372; 99284-25

== ENCOUNTER 2019-11-21 11:24 | Emergency (ER) | payer OTHER ==
[2019-11-21 11:29] VITALS: BP 115/63; PULSE 82; TEMP 98.4; BMI 72.3
== END 2019-11-21 13:05 | disposition left against medical advice (07) ==
LOC: MERGE 11:24 → JERFT 11:24
DX: M54.9 Dorsalgia, unspecified (principal)
CPT/HCPCS: 99281-25

== ENCOUNTER 2021-01-08 11:17 | Emergency (ER) | payer OTHER ==
[2021-01-08 11:38] VITALS: BP 134/86; PULSE 101; TEMP 98.6; BMI 31.4
[2021-01-08] MEDS ORDERED: FAMOTIDINE 20 MG TABLET PO ONE (11:46)
[2021-01-08] MEDS ORDERED: LORATADINE 10 MG TABLET PO ONE (11:47)
[2021-01-08] MEDS ORDERED: LORATADINE 10 MG TABLET ONE (11:50)
[2021-01-08] MEDS ORDERED: FAMOTIDINE 20 MG TABLET ONE (11:50)
== END 2021-01-08 12:10 | disposition home or self-care (01) ==
LOC: FER 11:17
DX: T78.40XA Allergy, unspecified, initial encounter (principal)
CPT/HCPCS: 99283-25

== ENCOUNTER 2021-01-27 16:05 | Emergency (ER) | payer OTHER ==
[2021-01-27 16:46] VITALS: BP 128/75; PULSE 94; TEMP 98; BMI 30.4
[2021-01-27 20:51] LABS: BASO % 1.2 % (0-2.0); EOS % 3.1 % (0-4.5); HEMOGLOBIN 10.5 GM/dL (10.7-15.3); LYMPH % 33.5 % (8-40); MCHC 32.9 g/dl (32.0-36.0); MEAN CELL VOLUME 79.1 fl (80-96); MEAN PLT VOLUME 7.3 fl (7.5-11.1); MONO % 11.4 % (3.8-10.2); NEUT % 50.8 % (42.8-82.8); PLATELET COUNT 351 10^3/uL (134-434); RBC 4.04 M/mm3 (3.60-5.2); WHITE BLOOD COUNT 7.2 K/mm3 (4.0-10.0)
[2021-01-27 20:58] LABS: CALCIUM 8.2 mg/dL (8.5-10.1)
[2021-01-27 20:59] LABS: ALBUMIN 3.5 g/dl (3.4-5.0); BLOOD UREA NITROGEN 9.4 mg/dL (7-18)
[2021-01-27 21:02] LABS: CREATININE 0.7 mg/dL (0.55-1.3)
[2021-01-27 21:03] LABS: BILIRUBIN,TOTAL 0.2 mg/dL (0.2-1); TOT PROT 7.4 g/dl (6.4-8.2)
== END 2021-01-27 21:29 | disposition home or self-care (01) ==
LOC: JER 16:05
DX: T81.31XA Disruption of external operation (surgical) wound, not elsewhere classified, initial encounter (principal)
CPT/HCPCS: 36415; 80053; 84703; 85025; 99283-25

== ENCOUNTER 2021-07-18 12:15 | Emergency (ER) | payer OTHER ==
[2021-07-18 12:22] VITALS: BP 133/79; PULSE 73; TEMP 98; BMI 31.4
[2021-07-18 13:45] LABS: INR 1.01 (0.83-1.09); PROTHROMBIN TIME (PATIENT) 11.6 SEC (9.7-13.0)
[2021-07-18 13:47] LABS: ACTIVATED PTT 27.4 SECONDS (25.2-36.5)
[2021-07-18 13:52] LABS: ALBUMIN 3.3 g/dl (3.4-5.0); BILIRUBIN,TOTAL 0.7 mg/dl (0.2-1); CALCIUM 8.3 mg/dl (8.5-10); CREATININE 0.7 mg/dl (0.55-1.3); TOT PROT 6.3 g/dl (6.4-8.2)
[2021-07-18 14:14] LABS: EPITHELIAL CELLS FEW /hpf
[2021-07-18 14:50] LABS: BASO % 0.3 % (0-2.0); HEMATOCRIT 35.9 % (32.4-45.2); HEMOGLOBIN 11.4 GM/dL (10.7-15.3); LYMPH % 21.4 % (8-40); MCH 25.4 pg (25.7-33.7); MCHC 31.7 g/dl (32.0-36.0); MEAN CELL VOLUME 80.3 fl (80-96); MEAN PLT VOLUME 8.2 fl (7.5-11.1); MONO % 9.7 % (3.8-10.2); NEUT % 67.6 % (42.8-82.8); PLATELET COUNT 293 10^3/uL (134-434); RBC 4.48 M/mm3 (3.60-5.2); RDW 19.5 % (11.6-15.6); WHITE BLOOD COUNT 8.5 K/mm3 (4.0-10.0)
[2021-07-18] MEDS ORDERED: CALCIUM GLUC IN NACL, ISO-OSM 1 GM/50 ML BAG IVPB ONE (14:58)
[2021-07-18] MEDS ORDERED: CALCIUM GLUCONATE 10% - 1,000 MG/10 ML VIAL ONE (15:07)
[2021-07-18] MEDS ORDERED: AZITHROMYCIN 500 MG TABLET PO ONE (16:02)
[2021-07-18] MEDS ORDERED: AZITHROMYCIN 250 MG TABLET ONE (16:40)
[2021-07-18] MEDS ORDERED: cefTRIAXone SODIUM 1 GM VIAL ONE (16:40)
[2021-07-18] MEDS ORDERED: ONDANSETRON 4 MG/2 ML VIAL ONE (16:42)
[2021-07-18] MEDS ORDERED: ONDANSETRON 4 MG/2 ML VIAL IVPUSH ONE (16:42)
== END 2021-07-18 18:52 | disposition home or self-care (01) ==
LOC: FER 12:15
PROC: 3E033NZ Introduction of Analgesics, Hypnotics, Sedatives into Peripheral Vein, Percutaneous Approach (ICD-10-PCS; principal; 2021-07-18)
PROC: 3E02329 Introduction of Other Anti-infective into Muscle, Percutaneous Approach (ICD-10-PCS; 2021-07-18)
DX: N93.9 Abnormal uterine and vaginal bleeding, unspecified (principal); R10.9 Unspecified abdominal pain
CPT/HCPCS: 36415; 74177-TC; 76830-TC; 80053; 81003; 81015; 84703; 85025; 85610; 85730; 86850; 86900; 86901; 87086; 87491; 87591; 93005; 93010; 99285-25; Q9967

== ENCOUNTER 2021-07-23 21:04 | Emergency (ER) | payer OTHER ==
[2021-07-23 21:16] VITALS: BP 116/66; PULSE 72; TEMP 98.1; BMI 30.9
[2021-07-23 21:50] LABS: HCG,QUALITATIVE URINE Negative
[2021-07-23 22:13] LABS: EPITHELIAL CELLS MANY /hpf
[2021-07-24 00:51] LABS: MCH 26.4 pg (25.7-33.7); MCHC 32.9 g/dl (32.0-36.0)
[2021-07-24 00:54] LABS: BASO % 0.4 % (0-2.0); EOS % 1.2 % (0-4.5); HEMATOCRIT 34.2 % (32.4-45.2); HEMOGLOBIN 11.2 GM/dL (10.7-15.3); LYMPH % 26.2 % (8-40); MEAN CELL VOLUME 80.2 fl (80-96); MEAN PLT VOLUME 7.8 fl (7.5-11.1); NEUT % 63.2 % (42.8-82.8); PLATELET COUNT 258 10^3/uL (134-434); RBC 4.26 M/mm3 (3.60-5.2); RDW 19.1 % (11.6-15.6); WHITE BLOOD COUNT 10.2 K/mm3 (4.0-10.0)
== END 2021-07-24 01:32 | disposition home or self-care (01) ==
LOC: FER 21:04
DX: N93.9 Abnormal uterine and vaginal bleeding, unspecified (principal)
CPT/HCPCS: 36415; 81003; 81015; 84443; 84703; 85025; 99283-25

== ENCOUNTER → 2022-01-07 | Day surgery (SDC) | payer OTHER | END | disposition home or self-care (01) | LOC: JRADUS-SUR 08:58 | PROVIDERS: ATTEND Registered Nurse | PROC: 0H9T0ZX Drainage of Right Breast, Open Approach, Diagnostic (ICD-10-PCS; principal; 2022-01-07) | DX: N60.21 Fibroadenosis of right breast (principal) | CPT/HCPCS: 19083; 87899; 88305-TC; A4648 ==

== ENCOUNTER 2022-06-21 22:08 | Emergency (ER) | payer OTHER ==
[2022-06-21 22:16] VITALS: BP 138/71; PULSE 98; RESP 20; TEMP 100; BMI 38.0
== END 2022-06-22 00:48 | disposition home or self-care (01) ==
LOC: JER 22:08
DX: J02.9 Acute pharyngitis, unspecified (principal); R05.1 Acute cough; R50.9 Fever, unspecified
CPT/HCPCS: 0241U-QW; 99283-25

== ENCOUNTER 2022-10-20 02:04 | Emergency (ER) | payer OTHER ==
[2022-10-20 02:13] VITALS: BMI 32.8
[2022-10-20] MEDS ORDERED: MAG HYDROX/AL HYDROX/SIMETH -MYLANTA- ORAL SUSPENSION PO ONE (03:20)
[2022-10-20] MEDS ORDERED: FAMOTIDINE 20 MG/50 ML IVPB 20 MG/50 ML MG IVPB ONE (03:20)
[2022-10-20] MEDS ORDERED: ACETAMINOPHEN 1000 MG/100 ML BAG IVPB ONE (03:20)
[2022-10-20] MEDS ORDERED: MAG HYDROX/AL HYDROX/SIMETH 30 ML UNIT-DOSE CUP ONE (03:28)
[2022-10-20] MEDS ORDERED: FAMOTIDINE 20 MG TABLET PO ONE (03:38)
[2022-10-20] MEDS ORDERED: ACETAMINOPHEN 325 MG TABLET (FP) PO ONE (03:38)
[2022-10-20] MEDS ORDERED: FAMOTIDINE 20 MG TABLET ONE (03:40)
[2022-10-20] MEDS ORDERED: ACETAMINOPHEN 325 MG TABLET (FP) ONE (03:40)
[2022-10-20 03:44] LABS: BASO % 0.9 % (0-2.0); EOS % 1.9 % (0-4.5); HEMATOCRIT 36.8 % (32.4-45.2); HEMOGLOBIN 12.1 GM/dL (10.7-15.3); LYMPH % 30.2 % (8-40); MCHC 32.9 g/dl (32.0-36.0); MEAN CELL VOLUME 82.1 fl (80-96); MEAN PLT VOLUME 7.3 fl (7.5-11.1); MONO % 10.3 % (3.8-10.2); NEUT % 56.7 % (42.8-82.8); PLATELET COUNT 304 10^3/uL (134-434); RBC 4.48 M/mm3 (3.60-5.2); RDW 15.9 % (11.6-15.6); WHITE BLOOD COUNT 9.3 K/mm3 (4.0-10.0)
[2022-10-20 04:01] LABS: POTASSIUM 4.3 mmol/L (3.5-5.1)
[2022-10-20 04:03] LABS: BLOOD UREA NITROGEN 10.6 mg/dL (7-18); CALCIUM 8.4 mg/dL (8.5-10.1)
[2022-10-20 04:04] LABS: ALBUMIN 3.3 g/dl (3.4-5.0)
[2022-10-20 04:06] LABS: CREATININE 0.7 mg/dL (0.55-1.3)
[2022-10-20 04:08] LABS: BILIRUBIN,TOTAL 0.2 mg/dL (0.2-1); TOT PROT 6.9 g/dl (6.4-8.2)
[2022-10-20 05:45] LABS: PH,URINE 5.5 (5.0-8.0); URINE APPEARANCE CLEAR; URINE BILIRUBIN NEGATIVE (NEGATIVE); URINE COLOR YELLOW; URINE GLUCOSE (UA) NEGATIVE (NEGATIVE); URINE KETONE NEGATIVE (NEGATIVE); URINE LEUK ESTERASE NEGATIVE (NEGATIVE); URINE NITRITE NEGATIVE (NEGATIVE); URINE PROTEIN NEGATIVE (NEGATIVE); URINE UROBILINOGEN 0.2 mg/dL (0.2-1.0)
[2022-10-20 07:23] VITALS: BP 115/88; PULSE 90; RESP 16; TEMP 98
== END 2022-10-20 07:31 | disposition home or self-care (01) ==
LOC: JER 02:04
DX: R10.13 Epigastric pain (principal); R00.2 Palpitations; R11.0 Nausea; R06.00 Dyspnea, unspecified
CPT/HCPCS: 36415; 71046-TC-FY; 80053; 81003; 83690; 84484; 84703; 85025; 87086; 93005; 93010; 99285-25